=== PATIENT | male | born 1955 | race Caucasian/White ===

== ENCOUNTER 2018-01-10 09:06 | Emergency (ER) | payer OTHER, SELFPAY ==
[2018-01-10 09:09] VITALS: BP 152/76; PULSE 84; RESP 17; TEMP 37.1; O2SAT 99; BMI 25.8
--- NOTE | 2018-01-10 09:20 | ED.DCSUM_ITS ---
- ER Visit Summary Date of Service: 01/10/18 Chief Complaint: Right first toe injury History of Present Illness: The patient is a 62 M who is moving a an 8 foot table when he dropped it on his right foot. He was wearing a shoe at the time. He sustained a laceration at the base of the right first toe. He moved his toe and thought he may have small bone and felt some crunching at that time. His last tetanus is unknown. Denies any other injuries. Physical Examination: Vital signs are reviewed. Right foot exam reveals a 3 cm laceration horizontally oriented at the base of the first toe. He has painful range of motion of the toe. No subungual hematoma. The nailbed is intact. Test Results: Right foot x-ray per my interpretation reveals a distal first toe phalanx fracture Emergency Department Course and Treatment: The patient does have a fracture as well as a laceration. The fracture is distal to the laceration. His laceration was repaired with 9, 4-0 sutures. This was done after a digital block with lidocaine. Patient did have irrigation of this area as well. He was given Wallagrass for pain. At this point he will be given a postop shoe. I will send him home with Wallagrass for pain and Keflex. He will need follow-up with orthopedics Treatment Plan: [] Disposition: Discharge Impression: Right first toe fracture First toe laceration, right, 3 cm Laceration repair by ED physician This note was generated with [employer] dictation software. It may contain incorrect words, spelling, and punctuation that were not noted in review of the chart prior to signing ED Disposition - Plan for ED Patient: Chief Complaint: Laceration Referrals: Maren Membreno DO [Primary Care Provider] -
[2018-01-10] MEDS: HYDROcodone Bitartrate/Apap 5/325 Tablet PO (09:29)
[2018-01-10] MEDS: Diphth,Pertuss(Acell),Tet Vac 0.5 ML Vial IM (09:30)
--- NOTE | 2018-01-10 09:30 | RAD_ITS ---
STUDY: X-RAY - RIGHT FOOT CLINICAL: Male, 62 years old. Right foot trauma with laceration after dropping table on right foot. TECHNIQUE: 3 view(s) of the foot. COMPARISON: None available. FINDINGS: Complete minimally comminuted oblique oriented fractures are noted through the first distal phalanx midportion with minimal distal and inferior displacement with minimal angulation apex inferior identified. Tiny bony fragment is seen medial to the first distal phalanx metaphyseal base approximate 0.3 cm diameter Additionally, complete comminuted transverse oriented acute fractures are noted the second distal phalanx midportion as well. Tiny bony fragments are seen medially and laterally at the base of the second distal phalanx each, approximate 0.4 cm diameter or smaller. Soft tissue swelling/hematoma is associated the fracture sites. Nonacute talus, calcaneus, and tarsal bones. Normal appearing visualized subtalar, talonavicular, calcaneocuboid, tarsal and tarsometatarsal articulations. Nonacute metatarsi. Normal metatarsophalangeal joint of the great toe. Normal tibial and fibular sesamoid bones. Normal interphalangeal joint of the great toe. Normal phalanges of the great toe. Normal second through fifth metatarsophalangeal joints. Normal interphalangeal joints and phalanges of the lesser toes. Moderate posterior and mild plantar calcaneal spurs are seen. Visualized subtalar joints and anterior talus appear intact. RAD/Foot min 3 Views IMPRESSION: Comminuted complete fractures first and second distal phalanges as described. Electronically Signed: Jerry Niño, at 11:20 EDT Tel , Service support ,
--- NOTE | 2018-01-10 10:08 | ED.DEP ---
ED Disposition - Plan for ED Patient: Disposition: Home or Assisted Living Chief Complaint: Laceration Instructions: ED Laceration All Prescriptions: Cephalexin [Keflex] 500 mg PO Q6 #28 cap Hydrocodone/Acetaminophen [[place] 5-325 Tablet] 1 - 2 ea PO 4X/DAY PRN PRN 3 Days #12 tab PRN Reason: Pain Referrals: Maren Membreno DO [Primary Care Provider] -
== END 2018-01-10 10:59 | disposition home or self-care (01) ==
PROVIDERS: Emergency Provider Emergency Medicine; Family Provider Internal Medicine; PCP Internal Medicine
DX: S92.401A Displaced unspecified fracture of right great toe, initial encounter for closed fracture (principal); W20.8XXA Other cause of strike by thrown, projected or falling object, initial encounter; Y93.9 Activity, unspecified; Y92.89 Other specified places as the place of occurrence of the external cause; Y99.9 Unspecified external cause status; S91.111A Laceration without foreign body of right great toe without damage to nail, initial encounter; I10 Essential (primary) hypertension
CPT/HCPCS: 12002; 73630; 90471; 90715; 99284

== ENCOUNTER 2018-01-22 09:53 | Day surgery (SDC) | payer OTHER, SELFPAY ==
[2018-01-22 10:15] VITALS: BP 146/79; PULSE 57; RESP 16; TEMP 36.9; O2SAT 98; BMI 25.1
[2018-01-22 10:34] LABS: Anion Gap 8 (5-15); BUN 28 mg/dL (7-18); Calcium,Total 9.3 mg/dL (8.5-10.1); Chloride 105 mmol/L (98-107); Creatinine, Serum 0.82 mg/dL (0.70-1.30); EST Glomerular Filtration Rate 100 mL/min (>60); Est Glom Filt Rate - Afr Amer 121 mL/min (>60); Estimated Creatinine Clearance 82.13 ml/min; Glucose 94 mg/dL (74-106); Potassium 3.7 mmol/L (3.5-5.1); Sodium Level 143 mmol/L (136-145)
[2018-01-22] MEDS: Cefazolin 2 GM in 0.9% Normal Saline 100 ML IV (12:27)
[2018-01-22] MEDS: Mupirocin Ointment 22gm Tube 1 APPLIC (12:39)
[2018-01-22] MEDS: Bupivacaine 0.5% PF 10 ML VIAL (12:57)
--- NOTE | 2018-01-22 13:08 | PCM.DC.ORTHO ---
Discharge Diet: No Restrictions - keep dressing clean, dry, and intact, follow up in 2 days with cal limat for incision eval and possible antibiotic change, nwb right foot Discharge Activity: May Not Drive May shower in (days): 1 Ice area for (Minutes): 20 - Every hour while awake. Weight Bearing Status: Weight bearing as tolerated Keep extremity elevated above heart level: Operative Extremity Call your doctor if your incision/area has: Continuous Slow Oozing, Sudden Increased Bleeding, Increased Pain/ Swelling, Increased Redness, Foul Smelling Discharge Call your doctor if you observe: Fever of 101 or Higher, Coldness, Increased Pain, Numbness or Tingling, Change in Color, Calf discomfort Allergies/Adverse Reactions: Allergies No Known Allergies Allergy (Verified 01/21/18 14:44) Medications to take at Discharge Aspirin [Aspirin, Baby] 81 mg PO DAILY@0800 01/10/18 Hydrochlorothiazide [Hctz] 25 mg PO DAILY 01/10/18 Lisinopril [Zestril] 5 mg PO DAILY 01/10/18 multivitamin tablet 1 tab PO QAM 01/13/18 cephalexin 500 mg capsule 500 mg PO Q6 #16 cap 01/20/18 Cm Core 1 cap PO DAILY 01/21/18 Cm Core 2 cap PO QHS 01/21/18 Flaxseed Oil 1,000 mg PO BID 01/21/18 Omeprazole [Prilosec] 20 mg PO DAILY 01/21/18 Hydrocodone Bitart/Apap 5-325 [[place] 5MG-325MG] 1 - 2 tablet PO Q6H PRN PRN 5 Days #40 tablet 01/22/18 The following prescriptions were given: Hydrocodone Bitart/Apap 5-325 [[place] 5MG-325MG] 1 - 2 tablet PO Q6H PRN PRN 5 Days #40 tablet PRN Reason: Pain Primary Care Physician: Maren Membreno DO [Primary Care Provider] - Test Results: Test results from this visit will be discussed in further detail at your follow-up appointment, if applicable. Please Follow Up With: Darlin Mayberry DO - [phone]
--- NOTE | 2018-01-22 13:09 | PCM.OPRPT ---
Report of Operation Date of Procedure: 01/22/18 Pre-Operative Diagnosis: right open fracture distal phalanx great toe with cellulitis/ drainage/infection Post-Operative Diagnosis: same Surgery/Procedure Performed:: right great toe nail removal, nailbed debridement, incision/debridement, subcutaneous and bony debridement/ skin removal/ zipper sewing machine operator: Pawel Dey Type of Anesthesia:: General, Local Specimen's removed: toenail, cultures of subcut tissue Estimated Blood Loss (mL): minimal Fluids Replaced: 1200ml lr Description of Procedure: Preoperative note Patient is a 62-year-old male who around 12 days ago had a table drop on his right great toe. Was seen in the emergency room and questionable whether not they irrigated and how much they irrigated and closed him up and was splinted and was seen in the office. Noted that he had increasing redness and continued drainage despite his antibiotics and he had run out of his into antibiotics as we extended his antibiotics for a few more days decision was made at that point to taken to the operating room for a formal irrigation debridement. Risks benefits and alternatives surgery discussed with patient. Risks including but not limited to blood loss, blood clot, infection, neurovascular injury, failure procedure, loss of life and loss of limb. Patient is aware like proceed with right toe irrigation debridement repair is indicated possible nail removal. Operative note Patient seen and examined preoperative holding area. Right great toe was marked. Patient brought to the operating room placed supine on the operating table sign, anesthesia and antibiotics were held until cultures were taken. Timeout was performed. The right leg was then elevated and tourniquet around the site was raised her pressure of 250 torr. We extended the incision was actually over the DIP joint both proximal and distally to an sure adequate flap coverage and evaluation. We extended it distally we also removed first remove the nail. Underneath the nail there was a laceration of the nailbed with the bone actually pinching the nail bed there is a laceration the nail bed. We then used a freer underneath the nailbed to release the bone off of the nailbed this is the most distal aspect of the fracture. We then again irrigated debrided bone tenderness of subcutaneous tissue and there is no tracking into the joint the tendon was intact. We irrigated with copious amounts of sterile saline and closed the incision that we had made. We and substitute dressings were applied we did apply a malleable splint that to keep the toe actually and extension in order to oppose the bone pieces better so that he has better healing. Patient tourniquet was inflated for total working time of 40 minutes. Patient tolerated procedure well there are no comp occasions patient transferred to recovery room in stable condition patient did receive a local block of the right great toe postoperatively as well by myself. Next under standard standard technique. Postoperative note Weight-bear through heel Follow-up in 2 days [place] prescription at Hospital pharmacy Call with increased pain numbness tingling further issues arise Continue p.o. antibiotics as prescribed This note was generated with [employer] dictation software. It may contain incorrect words, spelling, and punctuation that were not noted in checking the note before signing.
[2018-01-22 13:21] VITALS: BP 105/67; BP 146/79; PULSE 76; RESP 14; TEMP 36.4; O2SAT 100
[2018-01-22 13:30] VITALS: BP 100/63; BP 146/79; PULSE 69; RESP 16; O2SAT 99
[2018-01-22 13:45] VITALS: BP 112/65; BP 146/79; PULSE 68; RESP 16; O2SAT 95
[2018-01-22 14:01] VITALS: BP 110/59; BP 146/79; PULSE 66; RESP 16; TEMP 37; O2SAT 95
[2018-01-22 15:08] VITALS: BP 146/79
== END 2018-01-22 14:00 | disposition home or self-care (01) ==
LOC: SDC 09:55 → AC 09:57
PROVIDERS: Family Provider Internal Medicine; PCP Internal Medicine; Visit Provider Orthopaedic Surgery
DX: S91.111D Laceration without foreign body of right great toe without damage to nail, subsequent encounter (principal); L03.031 Cellulitis of right toe; S92.421G Displaced fracture of distal phalanx of right great toe, subsequent encounter for fracture with delayed healing; W20.8XXD Other cause of strike by thrown, projected or falling object, subsequent encounter; K21.9 Gastro-esophageal reflux disease without esophagitis; I10 Essential (primary) hypertension; Z85.46 Personal history of malignant neoplasm of prostate; Z87.891 Personal history of nicotine dependence
CPT/HCPCS: 11720; 11750; 36415; 80048; 87070; 87075; 87077; 87102; 87186; 87205; 87206; 93005; J7120; J2405

== ENCOUNTER 2018-02-12 12:41 | Emergency (ER) | payer OTHER, BC, SELFPAY ==
[2018-02-12 12:42] VITALS: BP 149/90; PULSE 85; RESP 16; TEMP 36.9; O2SAT 97; BMI 25.4
--- NOTE | 2018-02-12 13:03 | RAD_ITS ---
STUDY: X-RAY RIGHT FOOT, FIRST AND SECOND TOES REASON FOR EXAM: Recent surgery, redness and swelling of toe. TECHNIQUE: 3 view(s) of the toe were obtained. COMPARISON: Radiographs 01/10/2018. FINDINGS: Normal visualized metatarsals. Normal metatarsophalangeal joints. Normal interphalangeal joints. There is a comminuted fracture of the first distal phalanx with dorsal displacement of the major distal fragments by 0.5 cm and a small fracture at the lateral distal phalangeal base without bridging ossification. There is also a nondisplaced fracture of the second distal phalanx without significant interval change. There is soft tissue swelling of the first and second toes. RAD/Toe(s) Min 2 Views IMPRESSION: Fracture of the first distal phalanx with interval development of dorsal displacement. Nondisplaced fracture of the second distal phalanx. Electronically Signed: Sanket Ludwig MD at 14:35 EDT Tel , Service support ,
[2018-02-12 13:28] LABS: Absolute Lymphocyte Count 2.02 X10^3/ul (0.83-4.51); Absolute Neutrophil Count 6.6 X10^3/uL (2.0-7.7); Basophil# 0.06 X10^3/uL; Basophil% 0.6 % (0-1); Eosinophil# 0.04 X10^3/uL; Eosinophils% 0.4 % (0-5); Hematocrit 41.5 % (40-54); Hemoglobin 14.2 g/dl (13.0-16.5); Lymphocyte # 2.02 X10^3/ul (4.0); Lymphocyte % 21.3 % (19-41); Mean Corp Hgb Conc 34.2 g/gl (32-36); Mean Corpuscular Hgb 28.3 pg (27.0-32.0); Mean Corpuscular Volume 82.7 fL (80-94); Mean Platelet Vol. 9.9 fl (6.2-12.0); Monocyte# 0.79 X10^3/uL; Monocyte% 8.3 % (0-10); Neutrophil # 6.56 X10^3/uL (2.7-7.7); Neutrophil % 69.4 % (47-70); Platelet Count 283 K/mm3 (150-450); RBC Distribution Width CV 13.1 % (11.6-14.6); RBC Distribution Width SD 39.7 fl (35.1-43.9); Red Blood Count 5.02 M/mm3 (4.6-6.2); White Blood Count 9.5 K/mm3 (4.4-11.0)
[2018-02-12 13:29] LABS: POSITIVE COUNT NO; POSITIVE DIFFERENTIAL NO; POSITIVE MORPHOLOGY NO
[2018-02-12] MEDS: Vancomycin IV 1,000 MG/200 ML BAG 200 MG IV (13:31)
[2018-02-12 13:39] LABS: Anion Gap 9 (5-15); BUN 19 mg/dL (7-18); BUN/Creat Ratio 20.2 RATIO (10-20); Calcium,Total 8.9 mg/dL (8.5-10.1); Chloride 103 mmol/L (98-107); Creatinine, Serum 0.94 mg/dL (0.70-1.30); EST Glomerular Filtration Rate 86 mL/min (>60); Est Glom Filt Rate - Afr Amer 104 mL/min (>60); Estimated Creatinine Clearance 71.64 ml/min; Glucose 87 mg/dL (74-106); Potassium 3.7 mmol/L (3.5-5.1); Sodium Level 140 mmol/L (136-145)
--- NOTE | 2018-02-12 13:43 | ED.VISSUMM ---
- ER Visit Summary Date of Service: 02/12/18 Chief Complaint: Infection right first toe History of Present Illness: The patient is a [address] Membreno and Dr. Mayberry. He reports that January 10 he dropped a table on his right first toe. He got sutures. The healing process was complicated by infection. On January 22 he had an I&D by Dr. Mayberry. He reports that he was on 2 antibiotics the names of which he does not know which she finished February 02. He reports the toe is doing well until yesterday when it began turning red again. Reports that he is an aching pain that is 6 out of 10 with walking and is pain-free after ibuprofen. He reports he has paresthesias in this toe that are chronic and unchanged. He denies any constitutional symptoms. No fever, chills, nausea, or vomiting. Physical Examination: Vitals: Stable. Afebrile. General: Well-nourished and well-developed. Head: Normocephalic atraumatic. Neck: Supple, no lymphadenopathy. No JVD. Nontender. Cardiovascular: Regular rate and rhythm. No murmurs. Respiratory: No respiratory distress. Clear to auscultation bilaterally. Abdominal: Soft, nontender, nondistended, normal bowel sounds. No guarding, rebound, or peritoneal signs. Back: Nontender. Extremities: Right great toe has a scab over the MTP joint on the dorsum. The toe is erythematous. There is no appreciable induration. No fluctuance. There is a small drainage is expressed on the lateral side. Skin: Normal color, no rash. Neurologic: Alert and oriented ?3. Cranial nerves II through XII are intact. Normal strength and sensation. Psych: Normal affect. Test Results: CBC is normal. Chem-7 is marked for BUN of 19. Lactic acid is 1.9. Clinical Impression(s) from Imaging Studies Toe X-Ray 02/12/18 13:03 IMPRESSION: Fracture of the first distal phalanx with interval development of dorsal displacement. Nondisplaced fracture of the second distal phalanx. Electronically Signed: Sanket Ludwig MD at 14:35 EDT Tel , Service support , Emergency Department Course and Treatment: Patient's cultures were reviewed. He had an IV placed and was given dose of vancomycin IV. Aerobic and anaerobic cultures were sent. Treatment Plan: Patient was discussed with Dr. Mayberry. We reviewed his prior cultures. It was sensitive to Levaquin. Patient will be discharged on Levaquin instructed follow-up Dr. Mayberry in 1-2 days for repeat exam. She is also going to refer him to infectious disease. Patient is happy with this plan. Return to the emergency department for any worsening symptoms. Disposition: To home in improved and stable condition. Impression: 1. Cellulitis right great toe. 2. 21 days status post right great toe incision and drainage. This note was generated with [employer] dictation software. It may contain incorrect words, spelling, and punctuation that were not noted in review of the chart prior to signing ED Disposition - Plan for ED Patient: Chief Complaint: Wound Check Instructions: ED Wound Check Laceration FU Infec Prescriptions: Levofloxacin [Levaquin] 750 mg PO DAILY #7 tablet Referrals: Darlin Mayberry DO [STAFF PHYSICIAN] - 2 Days for wound check
[2018-02-12 13:54] LABS: Lactic Acid 1.9 mmol/L (0.4-2.0)
[2018-02-12] MEDS: levoFLOXacin 750 MG Tablet PO (15:29)
[2018-02-12 15:40] VITALS: BP 150/95; PULSE 61; RESP 16; O2SAT 96
== END 2018-02-12 15:41 | disposition home or self-care (01) ==
LOC: ED 13:16
PROVIDERS: Emergency Provider Emergency Medicine; Family Provider Internal Medicine; PCP Internal Medicine
DX: L03.031 Cellulitis of right toe (principal); I10 Essential (primary) hypertension; S92.421 Displaced fracture of distal phalanx of right great toe; X58.XXXD Exposure to other specified factors, subsequent encounter
CPT/HCPCS: 73660; 80048; 83605; 85025; 87070; 87075; 87077; 87186; 87205; 99284; J7050; A4216

== ENCOUNTER → 2018-02-13 10:27 | Outpatient (CLI) | payer OTHER, SELFPAY ==
--- NOTE | 2018-02-13 10:30 | RAD_ITS ---
STUDY: X-RAY RIGHT FOOT, FIRST AND SECOND TOES REASON FOR EXAM: Pain and infection. TECHNIQUE: 3 view(s) of the toe were obtained. COMPARISON: Radiographs 02/12/2018 and 01/10/2018. FINDINGS: Normal visualized metatarsals. Normal metatarsophalangeal joints. Normal interphalangeal joints. There is a comminuted fracture of the first distal phalanx with dorsal displacement of the major fragments at the major fracture site, possibly representing superimposed osteomyelitis. There is a nondisplaced fracture of the second distal phalanx. There is soft tissue swelling of the first and second toes. RAD/Toe(s) Min 2 Views IMPRESSION: Fracture of the first distal phalanx with resorption at the fracture site, possibly representing superimposed osteomyelitis. Nondisplaced fracture of the second distal phalanx. Electronically Signed: Sanket Ludwig MD at 7:38 EDT Tel , Service support ,
== END ==
PROVIDERS: Family Provider Internal Medicine; PCP Internal Medicine; Visit Provider Orthopaedic Surgery
DX: S92.401A Displaced unspecified fracture of right great toe, initial encounter for closed fracture (principal)
CPT/HCPCS: 73660

== ENCOUNTER 2018-02-17 13:00 | Outpatient (RCR) | payer OTHER, BC, SELFPAY ==
--- NOTE | 2018-02-17 15:52 | HP.OTEVAL_ITS ---
Patient's Visit Information QUENTIN RUDD is a 62 year old M, referred to Occupational Therapy by Darlin Mayberry DO, with a diagnosis of wound. Date of Evaluation: 02/14/18 Occupational Therapist: MICHAEL Alston/Dalton, CHT - Subjective Subjective: pt arrives to OT eval on crutches- states he dropped a table on his toe and broke it- states he did develop infection and was given IV antibiotics and is currently on antibiotics. is concerned about the wound and the pt. not able to get into the wound center until next wed. - Lower Limb Functional Index Lower Extremity Functional Score: 10 - Goals Goal:: pt and famiy ed. on wound care and cleaning and will demo understanding of home care. - Rehabilitation General Assessment: pt and family demo need for wound care - pt demo with large wound on top dorsal side of of right toe- eschar tissue/ yellowing sloughy tissue covering parts of the wound-and white coloration at toe tip- redness prox toe. swelling. - therapist ed. pt and on wound soak using 50/50 H20 and hydrogen peroxide, dreft warm water soaks and to work with surgical brush to remove yellow tissue 2x a day. and dress with gauze. pt and demo understanding. Rehabilitation Potential: Good - Anticipated Interventions Anticipated Interventions: Caregiver Training, Home Program Other Interventions: wound care - Visit Plan Frequency: 3x /Week Duration: 2 Weeks TEXT: Thank you for the opportunity to evaluate your patient. For Medicare and Medicare HMO plans, please review the plan of care and approve it. It will need to be FAXED BACK to us at [phone] for Medicare purposes. Please let me know if there are questions or concerns regarding this plan of care. Physician Signature: Date:
--- NOTE | 2018-04-01 08:00 | HP.OTDCSUM ---
HP - OT D/C Summary It has been my pleasure to treat QUENTIN RUDD under orders from Darlin Mayberry DO, for the diagnosis of wound for a total of 2 visit(s). Please see the following information for a summary of their discharge status. - Objective Objective/Function: pt demo with large wound on top dorsal side of of right toe- eschar tissue/ yellowing sloughy tissue covering parts of the wound-and white coloration at toe tip- redness prox toe. swelling. - Goals Other: wound care until pt can be seen at wound center Goal:: pt and famiy ed. on wound care and cleaning and will demo understanding of home care. - D/C Information If there are questions or concerns regarding this patient's occupational therapy, please fell free to call me at [phone]. Thank you for the referral of this patient. Sincerely, Nichelle Thompson, OTR/L, CHT
== END 2018-02-17 19:00 | disposition home or self-care (01) ==
LOC: OT 13:00
PROVIDERS: Family Provider Internal Medicine; PCP Internal Medicine; Visit Provider Orthopaedic Surgery
DX: S92.401D Displaced unspecified fracture of right great toe, subsequent encounter for fracture with routine healing (principal); Z48.817 Encounter for surgical aftercare following surgery on the skin and subcutaneous tissue
CPT/HCPCS: 97165; 97530

== ENCOUNTER 2018-02-26 15:00 | Outpatient (RCR) | payer OTHER, SELFPAY ==
[2018-02-19 13:35] VITALS: BP 144/87; PULSE 87; RESP 18; TEMP 36.8; BMI 25.3
--- NOTE | 2018-02-19 15:21 | PCM.WC.HP ---
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 Code(s): L97.513 - Non-pressure chronic ulcer of other part of right foot with necrosis of muscle (4) Peripheral vascular disease Status: Suspected Code(s): I73.9 - Peripheral vascular disease, unspecified (5) Malnutrition Status: Suspected Code(s): E46 - Unspecified protein-calorie malnutrition (6) Delayed wound healing Status: Chronic Code(s): T14.8XXD - Other injury of unspecified body region, subsequent encounter (7) Displaced fracture of distal phalanx of right great toe with delayed healing Status: Acute Code(s): S92.421G - Displaced fracture of distal phalanx of right great toe, subsequent encounter for fracture with delayed healing (8) Closed displaced fracture of distal phalanx of lesser toe of right foot Status: Acute Qualifiers: Encounter type: subsequent encounter Fracture healing: with delayed healing Qualified Code(s): S92.531G - Displaced fracture of distal phalanx of right lesser toe(s), subsequent encounter for fracture with delayed healing Code(s): S92.531A - Displaced fracture of distal phalanx of right lesser toe(s), initial encounter for closed fracture History of Present Illness Date of Service: 02/22/18 Chief Complaint: Right toe ulcer History of Wound: This 62-year-old male was seen today for nonhealing right great toe ulcer. He did have an initial traumatic accident on January 10, 2018 when he dropped a table on his toe at work. He was seen in the emergency room and subsequently was diagnosed with a distal phalanx comminuted fracture and laceration. He went for surgical debridement and irrigation on January 22, 2018 with orthopedic physician, Dr. Mayberry. He had continued devitalization of the skin and there was a concern of infection; he was placed on a seven-day course of levofloxacin. She was referred to the wound healing center due to recent exposure deeper tissue and nonhealing status. He denies worsening redness or swelling. He denies fever, chill, nausea, vomiting. He does have some pain that is aggravated with direct touch. This is a Workmen's Compensation case. 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 Medications: Aspirin, lisinopril, hydrochlorothiazide, omeprazole, levofloxacin. Allergies: No known drug allergies Surgical History: appendectomy, rotator cuff repair, - - hand surgery Allergies/Adverse Reactions: Allergies No Known Allergies Allergy (Verified 02/19/18 13:44) Home Medications: Ambulatory Orders Medication Instructions Recorded Lisinopril [Zestril] 5 mg PO DAILY 01/10/18 multivitamin tablet 1 tab PO QAM 01/13/18 Cm Core 1 cap PO DAILY 01/21/18 Cm Core 2 cap PO QHS 01/21/18 Flaxseed Oil 1,000 mg PO BID 01/21/18 Aspirin E.C. [Ecotrin] 81 mg PO DAILY 02/12/18 Hydrochlorothiazide [Hctz] 25 mg PO DAILY 02/12/18 Levofloxacin [Levaquin] 750 mg PO DAILY #7 tablet 02/12/18 Omeprazole Magnesium [Prilosec Otc] 20 mg PO DAILY 02/12/18 Lives: Spouse/ Significant Other Smoking Status: Former smoker Tobacco Use: Non-smoker Drugs: None Review of Systems Constitutional: Denies: Chills, Fever, Weakness Cardiovascular: Denies: Chest Pain, Claudication, Edema Respiratory: Denies: Shortness of Breath Gastrointestinal: Denies: Nausea, Vomiting Musculoskeletal: Reports: Foot Pain. Denies: Joint Tenderness, Leg Pain Skin: Reports: Skin Changes, Wounds. Denies: Pruritis Neurological: Denies: Tingling Psychiatric: Denies: Anxiety - Physical Exam Vital Signs Temp Pulse Resp BP 98.2 F 87 18 144/87 H 02/19/18 13:35 02/19/18 13:35 02/19/18 13:35 02/19/18 13:35 General: Alert, Oriented x3, Cooperative HEENT: Atraumatic Extremities: No cyanosis, Capillary Refill Less than 3 Seconds, No Calf Tenderness - Negative Genaro and Dorsey sign bilateral, Diminished Peripheral Pulses, Edema - Right great toe and foot, Tenderness - Pain with ulcer manipulation of right great toe and with fracture site compression. No pain with adjacent first metatarsophalangeal joint or sesamoid apparatus palpation or passive range of motion. The compartments of the right foot remain soft. 4- out of 5 resisted range of motion strength right hallux and foot, - - Pain to palpate hallux and second toe fracture sites Skin: Ulcer/ Wound - No purulence, josh eschar necrosis, odor noted to the right foot. The peripheral skin is atrophic. There is some subtle edema and diffuse erythema. There is exposed deep tendon tissue including the extensor hallucis longus. There is no nailbed noted. The remainder of the ulcer wound bed is granular and fibrous. There is no visualized or probe to the joint. Wound Measurements and Assessment WC - Nurse 1 - General Ulcer Measurement Start: 02/19/18 13:22 Freq: Status: Active Protocol: Activity Type Activity Date Activity User E-Sign Co-Sign Detail Recorded Client Recorded Date Recorded By Document 02/19/18 13:35 [facility] [id number] 02/19/18 13:42 [email or web address] 02/19/18 13:35 Wound Center Nurse 1 [Ulcer Assessment] #1- RT GR TOE -Combined with other wound No -Current Size (cm) - Length 1.6 -Current Size (cm) - Width 3.7 -Current Size (cm) - Depth 0.4 -Total Square Cm 5.92 -Date of Last Picture (Recall this 02/19/18 field) -Photo Taken Yes -Epithelialization None Present -Tunneling No -Undermining/Tunneling No -Circular Undermining No -Exudate Amt Small (1-33%) -Exudate Type Serosanguineous -Wound Margin Thickened & Rolled Under -Granulation Amt Large (67-100%) -Granulation Quality Red -Slough/Fibrin Yes -Necrosis Amt Small (1-33%) -Necrotic Tissue Type Adherent Slough -Structure Exposed Tendon -Texture (Yulia-wound Skin Appearance) Scarring -Moisture (Yulia-wound Skin Appearance Assessed ) -Color (Yulia-wound Skin Appearance) Erythema -Temperature (Yulia-wound Skin No Abnormality Appearance) (Pt Warm) -Tenderness on Palpation (Yulia-wound Yes Skin Appearance) -Ulcer Cleansing Rinsed/ Irrigated with Saline -Foul Odor after Cleansing No -Anesthetic Used 4% Lidocaine Solution [Edema Assessment] -Lower Limb Edema Present Yes -Right Calf (cm) 33 -Right Ankle (cm) 20 -Left Calf (cm) 30.5 -Left Ankle (cm) 19.5 WC - Nurse 2 - General Ulcer CM Notes Start: 02/19/18 13:22 Freq: Status: Active Protocol: Activity Type Activity Date Activity User E-Sign Co-Sign Detail Recorded Client Recorded Date Recorded By Document 02/19/18 14:10 [id number] 02/19/18 14:21 02/19/18 14:10 Wound Center Nurse 2 [Procedure/Treatment] #1- RT GR TOE -Time 14:18 -Correct Patient Yes -Correct Side, Site, Position Yes -Correct Procedure Yes -Procedure Performed Yes -Type of Procedure Debridement -Clinical Debridement Subcutaneous -Post Debridement Size (cm) - Length 1.6 -Post Debridement Size (cm) - Width 3.8 -Post Debridement Size (cm) - Depth 0.4 -Total Square Cm 6.08 -Wound/Ulcer Outcome Not Healed -Ulcer Cleansing Rinsed/ Irrigated with Saline -Foul Odor after Cleansing No -Bioengineered Tissue No -Bleeding Controlled with Pressure -Treatment Response Procedure Tolerated Well [See Physician Procedure note for Specifics] Musculoskeletal: No Tenderness to Palpation of Joints or Extremities, Muscle Wasting Neurological: Sensory exam intact to light touch and pain Psych/Mental Status: Normal Affect, Appropriate Debridement Note Post-Debridement Measurements/Treatment - Nurse 2 - General Ulcer CM Notes Start: 02/19/18 13:22 Freq: Status: Active Protocol: Activity Type Activity Date Activity User E-Sign Co-Sign Detail Recorded Client Recorded Date Recorded By Document 02/19/18 14:10 [email or web address] [id number] 02/19/18 14:21 02/19/18 14:10 Wound Center Nurse 2 #1- RT GR TOE -Time 14:18 -Correct Patient Yes -Correct Side, Site, Position Yes -Correct Procedure Yes -Procedure Performed Yes -Type of Procedure Debridement -Clinical Debridement Subcutaneous -Post Debridement Size (cm) - Length 1.6 -Post Debridement Size (cm) - Width 3.8 -Post Debridement Size (cm) - Depth 0.4 -Total Square Cm 6.08 -Wound/Ulcer Outcome Not Healed -Ulcer Cleansing Rinsed/ Irrigated with Saline -Foul Odor after Cleansing No -Bioengineered Tissue No -Bleeding Controlled with Pressure -Treatment Response Procedure Tolerated Well Wound debrided: dorsal hallux Laterality: Right Type of Debridement: Excisional debridement Anesthesia Used: 4% Lidocaine Solution Depth: in the subcutaneous layer Percentage of wound debrided: 100 Instrument Used: #15 blade Tissue Removed: fibrous, devitalized subcutaneous, biofilm, slough Severity: Fat Layer Exposed Amount of bleeding with debridement: Mild Bleeding Controlled with: Pressure Patient tolerated procedure well Assessment/Plan Assessment: Cellulitis right hallux resolving. Right great toe ulcer with muscle layer exposed. History of traumatic laceration. Comminuted distal phalanx fracture with delayed healing. Delayed healing. Malnutrition suspected. Peripheral vascular disease suspected and workup is in process Plan: I reviewed and discussed his case. I reviewed his chart including his previous intervention and Worker's Compensation paperwork. Subcutaneous excisional debridement was performed as noted in the clinical nursing panel. I recommend application of Adaptic and hydrogel to keep this wound bed moist. It is located lightly cleansed with soap and water. He was advised to avoid soaking activity. Due to the chronicity of this nonhealing ulcer site and his delayed healing status I recommend application of advanced wound care product, epi cord. The indications, anticipated application, and expected healing management and time were discussed in detail. He understands and is amenable to proceed with the prior authorization. Application will be considered once this is approved. I am also concerned about the dysvascular status of his toe even though he has palpable pulses. A noninvasive vascular study was ordered and to see 9 will be submitted. His foot x-ray was reviewed with a comminuted distal phalanx displaced fracture with continued gapping evidence of nonhealing. Overall the hallux remains in a rectus position and there is no soft tissue emphysema, foreign body, or obvious periosteal reaction or destruction. There is also a nondisplaced fracture of the adjacent second toe that does not appear to be healed. Serial x-rays will be obtained throughout his treatment process evaluate for any change. His recent laboratory work from February 12, 2018 was reviewed with a white blood cell count of 9.5 and sedimentation rate of 14. His most recent culture was also reviewed with pseudomonas aeruginosa. It appears this is clinically improved with Levaquin use. Additional antibiotics will be considered if his status worsens. Recommend continued fracture splinting with his toe splint as well as cam walker boot. His cam walker boot will provide better protection and a referral was provided. To keep weight off the fracture site in place weight on the heel. To elevate for additional protection and pain management. I appreciate the consultation. I answered all the patient's questions. He was advised to follow-up at the wound healing center in 1 week or call sooner if she has any questions or concerns. Wound healing etiology and treatment expectations were discussed in detail today. His approved workman compensation CPT codes are reviewed and additional C9 will be initiated for additional diagnoses as well as interventions.
[2018-02-26 14:56] VITALS: BP 128/79; PULSE 78; RESP 16; TEMP 37.2; BMI 25.3
--- NOTE | 2018-02-26 17:40 | PN.PCM_ITS ---
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 Current Visit: Yes Code(s): L97.513 - Non-pressure chronic ulcer of other part of right foot with necrosis of muscle (2) Laceration of great toe of right foot Status: Chronic Current Visit: Yes Qualifiers: Encounter type: subsequent encounter Damage to nail status: with damage Foreign body presence: without foreign body Qualified Code(s): S91.211D - Laceration without foreign body of right great toe with damage to nail, subsequent encounter Code(s): S91.111A - Laceration without foreign body of right great toe without damage to nail, initial encounter (3) Cellulitis of toe of right foot Status: Resolved Current Visit: Yes Code(s): L03.031 - Cellulitis of right toe (4) Peripheral vascular disease Status: Resolved Current Visit: No Code(s): I73.9 - Peripheral vascular disease, unspecified (5) Malnutrition Status: Suspected Current Visit: Yes Code(s): E46 - Unspecified protein- calorie malnutrition (6) Delayed wound healing Status: Chronic Current Visit: Yes Code(s): T14.8XXD - Other injury of unspecified body region, subsequent encounter (7) Displaced fracture of distal phalanx of right great toe with delayed healing Status: Chronic Current Visit: Yes Code(s): S92.421G - Displaced fracture of distal phalanx of right great toe, subsequent encounter for fracture with delayed healing (8) Closed displaced fracture of distal phalanx of lesser toe of right foot Status: Chronic Current Visit: Yes Qualifiers: Encounter type: subsequent encounter Fracture healing: with delayed healing Qualified Code(s): S92.531G - Displaced fracture of distal phalanx of right lesser toe(s), subsequent encounter for fracture with delayed healing Code(s): S92.531A - Displaced fracture of distal phalanx of right lesser toe(s), initial encounter for closed fracture Type of Wound Date of Service: 02/26/18 Chief Complaint: Right toe ulcer History of Wound: This 62-year-old male was seen today for nonhealing right great toe ulcer. He has a hallux fracture. He has completed a course of antibiotics. He denies fever, chill, nausea, vomiting. He does have some pain that is aggravated with direct touch. This is a Workmen's Compensation case. Progress of Wound: Stable - Physical Exam Vital Signs Temp Pulse Resp BP 98.9 F 78 16 128/79 H 02/26/18 14:56 02/26/18 14:56 02/26/18 14:56 02/26/18 14:56 General: Alert, Oriented x3, Cooperative Extremities: No cyanosis, Capillary Refill Less than 3 Seconds - All digits of right foot, No Calf Tenderness - Negative Genaro and Dorsey sign bilateral, Edema - Mild to hallux, Peripheral Pulses Normal Skin: Ulcer/ Wound - No purulence, no erythema, streaking, odor, no infection. There is exposed tendon to the dorsal aspect of the hallux and this is a near proximity to the bone and joint. There is no visualized bone. The wound bed has increased granulation tissue and interspersed fibrous tissue. There is no eschar. There is no interdigital maceration., - - He has hair noted to the foot and leg skin Wound Measurements and Assessment WC - Nurse 1 - General Ulcer Measurement Start: 02/19/18 13:22 Freq: Status: Active Protocol: Activity Type Activity Date Activity User E-Sign Co-Sign Detail Recorded Client Recorded Date Recorded By Document 02/26/18 14:56 [facility] [id number] 02/26/18 15:04 [facility] 02/26/18 14:56 Wound Center Nurse 1 [Ulcer Assessment] #1- RT GR TOE -Combined with other wound No -Current Size (cm) - Length 2.6 -Current Size (cm) - Width 3.9 -Current Size (cm) - Depth 0.3 -Total Square Cm 10.14 -Photo Taken No -Epithelialization Small 1-33% -Tunneling No -Undermining/Tunneling No -Circular Undermining No -Exudate Amt Medium (34-66%) -Exudate Type Serosanguineous -Wound Margin Distinct, Outline Attached -Granulation Amt Medium (34-66%) -Granulation Quality Red -Slough/Fibrin Yes -Necrosis Amt Small (1-33%) -Necrotic Tissue Type Adherent Slough -Structure Exposed Tendon -Texture (Yulia-wound Skin Appearance) Scarring -Moisture (Yulia-wound Skin Appearance Dry/Scaly ) -Color (Yulia-wound Skin Appearance) Erythema -Temperature (Yulia-wound Skin No Abnormality Appearance) (Pt Warm) -Tenderness on Palpation (Yulia-wound No Skin Appearance) -Ulcer Cleansing Rinsed/ Irrigated with Saline -Foul Odor after Cleansing No -Anesthetic Used 5% Lidocaine Gel - Nurse 2 - General Ulcer CM Notes Start: 02/19/18 13:22 Freq: Status: Active Protocol: Activity Type Activity Date Activity User E-Sign Co-Sign Detail Recorded Client Recorded Date Recorded By Document 02/26/18 15:38 [id number] 02/26/18 15:39 02/26/18 15:38 Wound Center Nurse 2 [Procedure/Treatment] -Time 15:39 -Correct Patient Yes -Correct Side, Site, Position Yes -Correct Procedure Yes -Procedure Performed Yes -Type of Procedure Debridement -Clinical Debridement Subcutaneous -Post Debridement Size (cm) - Length 2.7 -Post Debridement Size (cm) - Width 4 -Post Debridement Size (cm) - Depth 0.3 -Total Square Cm 10.8 -Wound/Ulcer Outcome Not Healed -Ulcer Cleansing Rinsed/ Irrigated with Saline -Foul Odor after Cleansing No -Bioengineered Tissue No -Bleeding Controlled with Pressure -Treatment Response Procedure Tolerated Well [See Physician Procedure note for Specifics] Pain Scale: 0-10 Numeric [Pain] -Is Patient Pain Free? Yes Musculoskeletal: No Muscle Wasting, Tenderness - Mild pain on palpation to the nail bed area and compression fracture site. No pain with passive motion of the hallux interphalangeal joint of the first metatarsal phalangeal joint Neurological: - - Lack of full epicritic sensation to the injured toe via sharp debridement Psych/Mental Status: Normal Affect, Appropriate Debridement Note Post-Debridement Measurements/Treatment - Nurse 2 - General Ulcer CM Notes Start: 02/19/18 13:22 Freq: Status: Active Protocol: Activity Type Activity Date Activity User E-Sign Co-Sign Detail Recorded Client Recorded Date Recorded By Document 02/19/18 14:10 [id number] 02/19/18 14:21 Document 02/26/18 15:38 [id number] 02/26/18 15:39 02/19/18 02/26/18 14:10 15:38 Wound Center Nurse 2 #1- RT GR TOE -Time 14:18 15:39 -Correct Patient Yes Yes -Correct Side, Site, Position Yes Yes -Correct Procedure Yes Yes -Procedure Performed Yes Yes -Type of Procedure Debridement Debridement -Clinical Debridement Subcutaneous Subcutaneous -Post Debridement Size (cm) - Length 1.6 2.7 -Post Debridement Size (cm) - Width 3.8 4 -Post Debridement Size (cm) - Depth 0.4 0.3 -Total Square Cm 6.08 10.8 -Wound/Ulcer Outcome Not Healed Not Healed -Ulcer Cleansing Rinsed/ Rinsed/ Irrigated with Irrigated with Saline Saline -Foul Odor after Cleansing No No -Bioengineered Tissue No No -Bleeding Controlled with Pressure Pressure -Treatment Response Procedure Procedure Tolerated Well Tolerated Well Pain Scale: 0-10 Numeric Is Patient Pain Free? 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 Right great toe ulcer with muscle layer exposed. History of traumatic laceration. Comminuted distal phalanx fracture with delayed healing. Delayed healing. Malnutrition suspected. Peripheral vascular disease has been ruled out Plan: I reviewed and discussed his case. I reviewed his chart including his previous intervention and Worker's Compensation paperwork. Subcutaneous excisional debridement was performed as noted in the clinical nursing panel. I recommend application of Adaptic and hydrogel to keep this wound bed moist. It is located lightly cleansed with soap and water. He was advised to avoid soaking activity. Due to the chronicity of this nonhealing ulcer site and his delayed healing status I recommended application of advanced wound care product, epi cord. The indications, anticipated application, and expected healing management and time were discussed in detail. He understands and is amenable to proceed with the prior authorization. Application will be considered once this is approved and the C9 is processed. I am also concerned about the dysvascular status of his toe even though he has palpable pulses. A noninvasive vascular study was ordered and this is reviewed. He appears to have normal ankle- brachial indices and appropriate waveforms suggesting healing is possible to the foot. His foot x-ray was reviewed with a comminuted distal phalanx displaced fracture with continued gapping evidence of nonhealing. Overall the hallux remains in a rectus position and there is no soft tissue emphysema, foreign body, or obvious periosteal reaction or destruction. There is also a nondisplaced fracture of the adjacent second toe that does not appear to be healed. Serial x-rays will be obtained throughout his treatment process evaluate for any change. His recent laboratory work from February 12, 2018 was reviewed with a white blood cell count of 9.5 and sedimentation rate of 14. His most recent culture was also reviewed with pseudomonas aeruginosa. It appears this is clinically improved with Levaquin use. Additional antibiotics will be considered if his status worsens. Recommend continued fracture splinting with his toe splint as well as cam walker boot. His cam walker boot will provide better protection and a referral was provided. To keep weight off the fracture site in place weight on the heel. To elevate for additional protection and pain management. To follow-up with orthopedic physician, Dr. Mayberry, as advised. He was advised to follow-up at the wound healing center in 1 week or call sooner if he has any questions or concerns.
--- NOTE | 2018-03-01 16:23 | LEAS_ITS ---
Arterial Study - Arterial Study Arterial Study: This is a 62-year-old male with an open ulceration on his great toe. Suspecting the presence of atherosclerotic peripheral arterial occlusive disease, the patient was brought to the noninvasive vascular laboratory at this time for the purpose of bilateral noninvasive lower extremity arterial assessment. Doppler signal assessment was used to evaluate the pulses at ankle level bilaterally. The posterior tibial and dorsalis pedis pulses were triphasic bilaterally. Segmental limb pressures were obtained bilaterally. The right ankle pressure, as determined by posterior tibial pulse, was measured at 157 mmHg. The right ankle pressure, as determined by dorsalis pedis pulse, was measured at 152 mmHg. The right digital pressure was measured at 101 mmHg. The left ankle pressure, as determined by posterior tibial pulse, was measured at 162 mmHg. The left ankle pressure, as determined by dorsalis pedis pulse, was measured at 150 mmHg. The left digital pressure was measured at 143 mmHg. Pulse?volume recordings were obtained bilaterally and segmentally. Waveform amplitudes appeared to be satisfactory at low thigh, calf, and ankle levels bilaterally. Digital waveform amplitudes were diminished. Resting ankle?brachial indices were calculated bilaterally. The resting right ankle?brachial index was calculated to be 1.19. The resting left ankle?brachial index was calculated to be 1.23. Digital?brachial indices were calculated bilaterally. The right digital- brachial index was calculated to be 0.77. The left digital-brachial index was calculated to be 1.08. Impression: Based upon the findings of this resting noninvasive lower extremity arterial study, there is no evidence of significant atherosclerotic peripheral arterial occlusive disease in the lower extremities bilaterally. Triphasic waveforms were noted at ankle level bilaterally. Resting ankle?brachial indices were bilaterally normal. Digital-brachial indices were also normal bilaterally. In summary, this represents a normal resting noninvasive lower extremity arterial study bilaterally.
== END 2018-03-02 23:59 ==
LOC: WC 15:00
PROVIDERS: Family Provider Internal Medicine; PCP Internal Medicine; Referring Provider Podiatrist; Visit Provider Podiatrist
DX: S92.531G Displaced fracture of distal phalanx of right lesser toe(s), subsequent encounter for fracture with delayed healing (principal); W22.8XXD Striking against or struck by other objects, subsequent encounter; I73.9 Peripheral vascular disease, unspecified; L97.513 Non-pressure chronic ulcer of other part of right foot with necrosis of muscle; L03.031 Cellulitis of right toe; I10 Essential (primary) hypertension; Z79.899 Other long term (current) drug therapy; Z79.82 Long term (current) use of aspirin; Z87.891 Personal history of nicotine dependence
CPT/HCPCS: 11042; 93923; 99213; G0463

== ENCOUNTER 2018-04-02 15:45 | Outpatient (RCR) | payer OTHER, SELFPAY ==
[2018-03-03 01:38] VITALS: BP 128/79; PULSE 78; RESP 16; TEMP 37.2
[2018-03-05 15:40] VITALS: BP 136/85; PULSE 79; RESP 16; TEMP 36.6
--- NOTE | 2018-03-05 17:13 | PCM.WC.PN ---
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 Current Visit: Yes Code(s): L97.513 - Non-pressure chronic ulcer of other part of right foot with necrosis of muscle (2) Malnutrition Status: Suspected Current Visit: Yes Code(s): E46 - Unspecified protein-calorie malnutrition (3) Delayed wound healing Status: Chronic Current Visit: Yes Code(s): T14.8XXD - Other injury of unspecified body region, subsequent encounter (4) Laceration of great toe of right foot Status: Chronic Current Visit: Yes Qualifiers: Code(s): S91.111A - Laceration without foreign body of right great toe without damage to nail, initial encounter (5) Displaced fracture of distal phalanx of right great toe with delayed healing Status: Chronic Current Visit: Yes Code(s): S92.421G - Displaced fracture of distal phalanx of right great toe, subsequent encounter for fracture with delayed healing (6) Closed displaced fracture of distal phalanx of lesser toe of right foot Status: Chronic Current Visit: Yes Qualifiers: Code(s): S92.531A - Displaced fracture of distal phalanx of right lesser toe(s), initial encounter for closed fracture (7) Closed nondisplaced fracture of lesser toe of right foot Status: Acute Current Visit: Yes Code(s): S92.504A - Nondisplaced unspecified fracture of right lesser toe(s), initial encounter for closed fracture (8) Laceration of right great toe without foreign body without damage to nail Status: Acute Current Visit: Yes Qualifiers: Code(s): S91.111A - Laceration without foreign body of right great toe without damage to nail, initial encounter (9) Closed displaced fracture of right great toe Status: Chronic Current Visit: Yes Code(s): S92.401A - Displaced unspecified fracture of right great toe, initial encounter for closed fracture Type of Wound Date of Service: 03/05/18 Chief Complaint: Right toe ulcer History of Wound: This 62-year-old male was seen today for nonhealing right great toe ulcer. He has a hallux fracture. He has completed a course of antibiotics. He denies fever, chill, nausea, vomiting. He does have some pain that is aggravated with direct touch. This is a Workmen's Compensation case. His C9 for additional codes are pending. He denies redness or odor from the wound bed. He continues to wear his splint and specialized fracture shoe. Progress of Wound: Improving quality - Physical Exam Vital Signs Temp Pulse Resp BP 97.8 F 79 16 136/85 H 03/05/18 15:40 10 15:40 10 15:40 03/05/18 15:40 General: Alert, Oriented x3, Cooperative HEENT: Atraumatic Extremities: No cyanosis, Capillary Refill Less than 3 Seconds, No Calf Tenderness - Negative Genaro and Dorsey bilateral, Edema - Mild toe, Peripheral Pulses Normal Skin: Ulcer/ Wound - No purulence, no erythema, streaking, no odor, no infection noted to the right foot. There is exposed tendon. There is no direct probe to bone or joint. The peripheral skin does have hair and skin turgor is fairly normal. There is no longer any eschar noted Wound Measurements and Assessment WC - Nurse 1 - General Ulcer Measurement Start: 03/05/18 15:40 Freq: Status: Active Protocol: Activity Type Activity Date Activity User E-Sign Co-Sign Detail Recorded Client Recorded Date Recorded By Document 03/05/18 15:40 [facility] [id number] 03/05/18 15:51 BM 03/05/18 15:40 Wound Center Nurse 1 [Ulcer Assessment] #1- RT GR TOE -Combined with other wound No -Current Size (cm) - Length 2.3 -Current Size (cm) - Width 3.1 -Current Size (cm) - Depth 0.3 -Total Square Cm 7.13 -Photo Taken No -Epithelialization None Present -Tunneling No -Undermining/Tunneling No -Circular Undermining No -Exudate Amt Small (1-33%) -Exudate Type Serosanguineous -Wound Margin Distinct, Outline Attached -Granulation Amt Medium (34-66%) -Granulation Quality Red -Slough/Fibrin Yes -Necrosis Amt Medium (34-66%) -Necrotic Tissue Type Adherent Slough -Texture (Yulia-wound Skin Appearance) Scarring -Moisture (Yulia-wound Skin Appearance Dry/Scaly ) -Color (Yulia-wound Skin Appearance) Erythema -Temperature (Yulia-wound Skin No Abnormality Appearance) (Pt Warm) -Tenderness on Palpation (Yulia-wound Yes Skin Appearance) -Ulcer Cleansing Rinsed/ Irrigated with Saline -Foul Odor after Cleansing No -Anesthetic Used 4% Lidocaine Solution - Nurse 2 - General Ulcer CM Notes Start: 03/05/18 15:40 Freq: Status: Active Protocol: Activity Type Activity Date Activity User E-Sign Co-Sign Detail Recorded Client Recorded Date Recorded By Document 03/05/18 16:07 JESICA [id number] 03/05/18 16:15 03/05/18 16:07 Wound Center Nurse 2 [Procedure/Treatment] -Time 16:08 -Correct Patient Yes -Correct Side, Site, Position Yes -Correct Procedure Yes -Procedure Performed Yes -Type of Procedure Debridement -Clinical Debridement Subcutaneous -Post Debridement Size (cm) - Length 2.3 -Post Debridement Size (cm) - Width 3.2 -Post Debridement Size (cm) - Depth 0.3 -Total Square Cm 7.36 -Wound/Ulcer Outcome Not Healed -Ulcer Cleansing Rinsed/ Irrigated with Saline -Foul Odor after Cleansing No -Bioengineered Tissue No -Bleeding Controlled with Pressure -Treatment Response Procedure Tolerated Well [See Physician Procedure note for Specifics] Pain Scale: 0-10 Numeric [Pain] -Is Patient Pain Free? Yes Musculoskeletal: No Tenderness to Palpation of Joints or Extremities, Muscle Wasting Neurological: Sensory exam intact to light touch and pain Psych/Mental Status: Normal Affect, Appropriate Debridement Note Post-Debridement Measurements/Treatment - Nurse 2 - General Ulcer CM Notes Start: 03/05/18 15:40 Freq: Status: Active Protocol: Activity Type Activity Date Activity User E-Sign Co-Sign Detail Recorded Client Recorded Date Recorded By Document 03/05/18 16:07 [id number] 03/05/18 16:15 03/05/18 16:07 Wound Center Nurse 2 #1- RT GR TOE -Time 16:08 -Correct Patient Yes -Correct Side, Site, Position Yes -Correct Procedure Yes -Procedure Performed Yes -Type of Procedure Debridement -Clinical Debridement Subcutaneous -Post Debridement Size (cm) - Length 2.3 -Post Debridement Size (cm) - Width 3.2 -Post Debridement Size (cm) - Depth 0.3 -Total Square Cm 7.36 -Wound/Ulcer Outcome Not Healed -Ulcer Cleansing Rinsed/ Irrigated with Saline -Foul Odor after Cleansing No -Bioengineered Tissue No -Bleeding Controlled with Pressure -Treatment Response Procedure Tolerated Well Pain Scale: 0-10 Numeric Is Patient Pain Free? 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 Right great toe ulcer with muscle layer exposed. History of traumatic laceration. Comminuted distal phalanx fracture with delayed healing. Delayed healing. Malnutrition suspected. Peripheral vascular disease has been ruled out Plan: I reviewed and discussed his case. I reviewed his chart including his previous intervention and Worker's Compensation paperwork. Subcutaneous excisional debridement was performed as noted in the clinical nursing panel. I recommend application of Adaptic and hydrogel to keep this wound bed moist. It is located lightly cleansed with soap and water. He was advised to avoid soaking activity. Due to the chronicity of this nonhealing ulcer site and his delayed healing status I recommended application of advanced wound care product, epi cord. The indications, anticipated application, and expected healing management and time were discussed in detail. He understands and is amenable to proceed with the prior authorization. Application will be considered once this is approved and the C9 is processed; this is still pending. A noninvasive vascular study was ordered and this is reviewed. He appears to have normal ankle-brachial indices and appropriate waveforms suggesting healing is possible to the foot. His foot x-ray was reviewed with a comminuted distal phalanx displaced fracture with continued gapping evidence of nonhealing. Overall the hallux remains in a rectus position and there is no soft tissue emphysema, foreign body, or obvious periosteal reaction or destruction. There is also a nondisplaced fracture of the adjacent second toe that does not appear to be healed. Serial x-rays will be obtained throughout his treatment process evaluate for any change. His recent laboratory work from February 12, 2018 was reviewed with a white blood cell count of 9.5 and sedimentation rate of 14. His most recent culture was also reviewed with pseudomonas aeruginosa. It appears this is clinically improved with Levaquin use. Additional antibiotics will be considered if his status worsens. Recommend continued fracture splinting with his toe splint as well as cam walker boot. His cam walker boot will provide better protection and a referral was provided. To keep weight off the fracture site in place weight on the heel. To elevate for additional protection and pain management. To follow-up with orthopedic physician, Dr. Mayberry, as advised. He was advised to follow-up at the wound healing center in 1 week or call sooner if he has any questions or concerns. An additional C9 was previously submitted to include ulcer and also related codes in which he is currently seeking care for at the wound healing center.
[2018-03-12 15:40] VITALS: BP 145/85; PULSE 91; RESP 16; TEMP 36.9
--- NOTE | 2018-03-12 17:00 | PCM.WC.PN ---
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 Current Visit: Yes Code(s): L97.513 - Non-pressure chronic ulcer of other part of right foot with necrosis of muscle (2) Malnutrition Status: Suspected Current Visit: Yes Code(s): E46 - Unspecified protein-calorie malnutrition (3) Delayed wound healing Status: Chronic Current Visit: Yes Code(s): T14.8XXD - Other injury of unspecified body region, subsequent encounter (4) Laceration of great toe of right foot Status: Chronic Current Visit: Yes Qualifiers: Code(s): S91.111A - Laceration without foreign body of right great toe without damage to nail, initial encounter (5) Displaced fracture of distal phalanx of right great toe with delayed healing Status: Chronic Current Visit: Yes Code(s): S92.421G - Displaced fracture of distal phalanx of right great toe, subsequent encounter for fracture with delayed healing (6) Closed displaced fracture of distal phalanx of lesser toe of right foot Status: Chronic Current Visit: Yes Qualifiers: Code(s): S92.531A - Displaced fracture of distal phalanx of right lesser toe(s), initial encounter for closed fracture (7) Closed nondisplaced fracture of lesser toe of right foot Status: Acute Current Visit: Yes Code(s): S92.504A - Nondisplaced unspecified fracture of right lesser toe(s), initial encounter for closed fracture (8) Laceration of right great toe without foreign body without damage to nail Status: Acute Current Visit: Yes Qualifiers: Code(s): S91.111A - Laceration without foreign body of right great toe without damage to nail, initial encounter (9) Closed displaced fracture of right great toe Status: Chronic Current Visit: Yes Code(s): S92.401A - Displaced unspecified fracture of right great toe, initial encounter for closed fracture Type of Wound Date of Service: 03/12/18 Chief Complaint: Right toe ulcer History of Wound: This 62-year-old male was seen today for nonhealing right great toe ulcer. He has a hallux fracture. He has completed a course of antibiotics. He denies fever, chill, nausea, vomiting. This is a Workmen's Compensation case. His C9 for additional codes are pending. He denies redness or odor from the wound bed. He continues to wear his splint and specialized fracture shoe. Progress of Wound: Improving quality - Physical Exam Vital Signs Temp Pulse Resp BP 98.4 F 91 16 145/85 H 03/12/18 15:40 03/12/18 15:40 03/12/18 15:40 03/12/18 15:40 General: Alert, Oriented x3, Cooperative Extremities: No cyanosis, Capillary Refill Less than 3 Seconds, No Calf Tenderness - Negative Genaro and Dorsey sign, Diminished Peripheral Pulses, Edema, Tenderness - Decreased tenderness with wound manipulation right Skin: Ulcer/ Wound - No purulence, erythema, streaking, odor, eschar or exposed bone. There is deeper tendon still exposed and this appears to be healthy. The adjacent skin does have hair and it is slightly atrophic Wound Measurements and Assessment WC - Nurse 1 - General Ulcer Measurement Start: 03/05/18 15:40 Freq: Status: Active Protocol: Activity Type Activity Date Activity User E-Sign Co-Sign Detail Recorded Client Recorded Date Recorded By Document 03/12/18 15:40 [facility] [id number] 03/12/18 15:45 [facility] 03/12/18 15:40 Wound Center Nurse 1 [Ulcer Assessment] #1- RT GR TOE -Combined with other wound No -Current Size (cm) - Length 1.3 -Current Size (cm) - Width 2.9 -Current Size (cm) - Depth 0.3 -Total Square Cm 3.77 -Photo Taken No -Epithelialization None Present -Tunneling No -Undermining/Tunneling No -Circular Undermining No -Exudate Amt Small (1-33%) -Exudate Type Serosanguineous -Wound Margin Distinct, Outline Attached -Granulation Amt Medium (34-66%) -Granulation Quality Red -Slough/Fibrin Yes -Necrosis Amt Medium (34-66%) -Necrotic Tissue Type Adherent Slough -Texture (Yulia-wound Skin Appearance) Scarring -Moisture (Yulia-wound Skin Appearance Dry/Scaly ) -Color (Yulia-wound Skin Appearance) Erythema -Temperature (Yulia-wound Skin No Abnormality Appearance) (Pt Warm) -Tenderness on Palpation (Yulia-wound No Skin Appearance) -Ulcer Cleansing Rinsed/ Irrigated with Saline -Foul Odor after Cleansing No -Anesthetic Used 5% Lidocaine Gel WC - Nurse 2 - General Ulcer CM Notes Start: 10/03/18 15:40 Freq: Status: Active Protocol: Activity Type Activity Date Activity User E-Sign Co-Sign Detail Recorded Client Recorded Date Recorded By Document 03/12/18 16:13 [id number] 03/12/18 16:16 03/12/18 16:13 Wound Center Nurse 2 [Procedure/Treatment] -Time 16:15 -Correct Patient Yes -Correct Side, Site, Position Yes -Correct Procedure Yes -Procedure Performed Yes -Type of Procedure Debridement -Clinical Debridement Subcutaneous -Post Debridement Size (cm) - Length 1.3 -Post Debridement Size (cm) - Width 3.0 -Post Debridement Size (cm) - Depth 0.2 -Total Square Cm 3.90 -Wound/Ulcer Outcome Not Healed -Ulcer Cleansing Rinsed/ Irrigated with Saline -Foul Odor after Cleansing No -Bioengineered Tissue No -Bleeding Controlled with Pressure -Treatment Response Procedure Tolerated Well [See Physician Procedure note for Specifics] Pain Scale: 0-10 Numeric [Pain] -Is Patient Pain Free? Yes Musculoskeletal: No Tenderness to Palpation of Joints or Extremities, Muscle Wasting Neurological: Sensory exam intact to light touch and pain Psych/Mental Status: Normal Affect, Appropriate Debridement Note Post-Debridement Measurements/Treatment WC - Nurse 2 - General Ulcer CM Notes Start: 03/05/18 15:40 Freq: Status: Active Protocol: Activity Type Activity Date Activity User E-Sign Co-Sign Detail Recorded Client Recorded Date Recorded By Document 03/05/18 16:07 [id number] 03/05/18 16:15 Document 03/12/18 16:13 [id number] 03/12/18 16:16 03/05/18 03/12/18 16:07 16:13 Wound Center Nurse 2 #1- RT GR TOE -Time 16:08 16:15 -Correct Patient Yes Yes -Correct Side, Site, Position Yes Yes -Correct Procedure Yes Yes -Procedure Performed Yes Yes -Type of Procedure Debridement Debridement -Clinical Debridement Subcutaneous Subcutaneous -Post Debridement Size (cm) - Length 2.3 1.3 -Post Debridement Size (cm) - Width 3.2 3.0 -Post Debridement Size (cm) - Depth 0.3 0.2 -Total Square Cm 7.36 3.90 -Wound/Ulcer Outcome Not Healed Not Healed -Ulcer Cleansing Rinsed/ Rinsed/ Irrigated with Irrigated with Saline Saline -Foul Odor after Cleansing No No -Bioengineered Tissue No No -Bleeding Controlled with Pressure Pressure -Treatment Response Procedure Procedure Tolerated Well Tolerated Well Pain Scale: 0-10 Numeric Is Patient Pain Free? 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 Right great toe ulcer with muscle layer exposed. History of traumatic laceration. Comminuted distal phalanx fracture with delayed healing. Delayed healing. Malnutrition suspected. Peripheral vascular disease has been ruled out Plan: I reviewed and discussed his case. I reviewed his chart including his previous intervention and Worker's Compensation paperwork. Subcutaneous excisional debridement was performed as noted in the clinical nursing panel. I recommend application of Adaptic and hydrogel to keep this wound bed moist. It is also okay to intermittently apply Madie instead to aid with collagen scaffolding; this is dispensed today. It is located lightly cleansed with soap and water. He was advised to avoid soaking activity. To avoid leaving the site open to the air. Due to the chronicity of this nonhealing ulcer site and his delayed healing status I recommended application of advanced wound care product, epi cord. The indications, anticipated application, and expected healing management and time were discussed in detail. He understands and is amenable to proceed with the prior authorization. Application of this recommended product will be considered once this is approved and the C9 is processed; this is still pending. A noninvasive vascular study was ordered and this is reviewed. He appears to have normal ankle-brachial indices and appropriate waveforms suggesting healing is possible to the foot. His foot x-ray was reviewed with a comminuted distal phalanx displaced fracture with continued gapping evidence of nonhealing. Overall the hallux remains in a rectus position and there is no soft tissue emphysema, foreign body, or obvious periosteal reaction or destruction. There is also a nondisplaced fracture of the adjacent second toe that does not appear to be healed. Serial x-rays will be obtained throughout his treatment process evaluate for any change. His recent laboratory work from February 12, 2018 was reviewed with a white blood cell count of 9.5 and sedimentation rate of 14. His most recent culture was also reviewed with pseudomonas aeruginosa. It appears this is clinically improved with Levaquin use. Additional antibiotics will be considered if his status worsens. Recommend continued fracture splinting with his toe splint as well as cam walker boot. His cam walker boot will provide better protection and a referral was provided. To keep weight off the fracture site in place weight on the heel. To elevate for additional protection and pain management. To follow-up with orthopedic physician, Dr. Mayberry, as advised. He was advised to follow-up at the wound healing center in 1 week or call sooner if he has any questions or concerns. An additional C9 was previously submitted to include ulcer and also related codes in which he is currently seeking care for at the wound healing center.
--- NOTE | 2018-03-12 17:04 | PN.PCM_ITS ---
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 Current Visit: Yes Code(s): L97.513 - Non-pressure chronic ulcer of other part of right foot with necrosis of muscle (2) Malnutrition Status: Suspected Current Visit: Yes Code(s): E46 - Unspecified protein- calorie malnutrition (3) Delayed wound healing Status: Chronic Current Visit: Yes Code(s): T14.8XXD - Other injury of unspecified body region, subsequent encounter (4) Laceration of great toe of right foot Status: Chronic Current Visit: Yes Qualifiers: Code(s): S91.111A - Laceration without foreign body of right great toe without d amage to nail, initial encounter (5) Displaced fracture of distal phalanx of right great toe with delayed healing Status: Chronic Current Visit: Yes Code(s): S92.421G - Displaced fracture of distal phalanx of right great toe, subsequent encounter for fracture with delayed healing (6) Closed displaced fracture of distal phalanx of lesser toe of right foot Status: Chronic Current Visit: Yes Qualifiers: Code(s): S92.531A - Displaced fracture of distal phalanx of right lesser toe(s), initial encounter for closed fracture (7) Closed nondisplaced fracture of lesser toe of right foot Status: Acute Current Visit: Yes Code(s): S92.504A - Nondisplaced unspecified fracture of right lesser toe(s), initial encounter for closed fracture (8) Laceration of right great toe without foreign body without damage to nail Status: Acute Current Visit: Yes Qualifiers: Code(s): S91.111A - Laceration without foreign body of right great toe without damage to nail, initial encounter (9) Closed displaced fracture of right great toe Status: Chronic Current Visit: Yes Code(s): S92.401A - Displaced unspecified fracture of right great toe, initial encounter for closed fracture Type of Wound Date of Service: 03/12/18 Chief Complaint: Right toe ulcer History of Wound: This 62-year-old male was seen today for nonhealing right great toe ulcer. He has a hallux fracture. He has completed a course of antibiotics. He denies fever, chill, nausea, vomiting. This is a Workmen's Compensation case. His C9 for additional codes are pending. He denies redness or odor from the wound bed. He continues to wear his splint and specialized fracture shoe. Progress of Wound: Improving quality - Physical Exam Vital Signs Temp Pulse Resp BP 98.4 F 91 16 145/85 H 03/12/18 15:40 03/12/18 15:40 03/12/18 15:40 03/12/18 15:40 General: Alert, Oriented x3, Cooperative Extremities: No cyanosis, Capillary Refill Less than 3 Seconds, No Calf Tenderness - Negative Genaro and Dorsey sign, Diminished Peripheral Pulses, Edema, Tenderness - Decreased tenderness with wound manipulation right Skin: Ulcer/ Wound - No purulence, erythema, streaking, odor, eschar or exposed bone. There is deeper tendon still exposed and this appears to be healthy. The adjacent skin does have hair and it is slightly atrophic Wound Measurements and Assessment WC - Nurse 1 - General Ulcer Measurement Start: 03/05/18 15:40 Freq: Status: Active Protocol: Activity Type Activity Date Activity User E-Sign Co-Sign Detail Recorded Client Recorded Date Recorded By Document 03/12/18 15:40 [facility] [id number] 03/12/18 15:45 BM 03/12/18 15:40 Wound Center Nurse 1 [Ulcer Assessment] #1- RT GR TOE -Combined with other wound No -Current Size (cm) - Length 1.3 -Current Size (cm) - Width 2.9 -Current Size (cm) - Depth 0.3 -Total Square Cm 3.77 -Photo Taken No -Epithelialization None Present -Tunneling No -Undermining/Tunneling No -Circular Undermining No -Exudate Amt Small (1-33%) -Exudate Type Serosanguineous -Wound Margin Distinct, Outline Attached -Granulation Amt Medium (34-66%) -Granulation Quality Red -Slough/Fibrin Yes -Necrosis Amt Medium (34-66%) -Necrotic Tissue Type Adherent Slough -Texture (Yulia-wound Skin Appearance) Scarring -Moisture (Yulia-wound Skin Appearance Dry/Scaly ) -Color (Yulia-wound Skin Appearance) Erythema -Temperature (Yulia-wound Skin No Abnormality Appearance) (Pt Warm) -Tenderness on Palpation (Yulia-wound No Skin Appearance) -Ulcer Cleansing Rinsed/ Irrigated with Saline -Foul Odor after Cleansing No -Anesthetic Used 5% Lidocaine Gel WC - Nurse 2 - General Ulcer CM Notes Start: 03/05/18 15:40 Freq: Status: Active Protocol: Activity Type Activity Date Activity User E-Sign Co-Sign Detail Recorded Client Recorded Date Recorded By Document 03/12/18 16:13 [id number] 03/12/18 16:16 03/12/18 16:13 Wound Center Nurse 2 [Procedure/Treatment] -Time 16:15 -Correct Patient Yes -Correct Side, Site, Position Yes -Correct Procedure Yes -Procedure Performed Yes -Type of Procedure Debridement -Clinical Debridement Subcutaneous -Post Debridement Size (cm) - Length 1.3 -Post Debridement Size (cm) - Width 3.0 -Post Debridement Size (cm) - Depth 0.2 -Total Square Cm 3.90 -Wound/Ulcer Outcome Not Healed -Ulcer Cleansing Rinsed/ Irrigated with Saline -Foul Odor after Cleansing No -Bioengineered Tissue No -Bleeding Controlled with Pressure -Treatment Response Procedure Tolerated Well [See Physician Procedure note for Specifics] Pain Scale: 0-10 Numeric [Pain] -Is Patient Pain Free? Yes Musculoskeletal: No Tenderness to Palpation of Joints or Extremities, Muscle Wasting Neurological: Sensory exam intact to light touch and pain Psych/Mental Status: Normal Affect, Appropriate Debridement Note Post-Debridement Measurements/Treatment - Nurse 2 - General Ulcer CM Notes Start: 03/05/18 15:40 Freq: Status: Active Protocol: Activity Type Activity Date Activity User E-Sign Co-Sign Detail Recorded Client Recorded Date Recorded By Document 03/05/18 16:07 [id number] 03/05/18 16:15 Document 03/12/18 16:13 [id number] 03/12/18 16:16 03/05/18 03/12/18 16:07 16:13 Wound Center Nurse 2 #1- RT GR TOE -Time 16:08 16:15 -Correct Patient Yes Yes -Correct Side, Site, Position Yes Yes -Correct Procedure Yes Yes -Procedure Performed Yes Yes -Type of Procedure Debridement Debridement -Clinical Debridement Subcutaneous Subcutaneous -Post Debridement Size (cm) - Length 2.3 1.3 -Post Debridement Size (cm) - Width 3.2 3.0 -Post Debridement Size (cm) - Depth 0.3 0.2 -Total Square Cm 7.36 3.90 -Wound/Ulcer Outcome Not Healed Not Healed -Ulcer Cleansing Rinsed/ Rinsed/ Irrigated with Irrigated with Saline Saline -Foul Odor after Cleansing No No -Bioengineered Tissue No No -Bleeding Controlled with Pressure Pressure -Treatment Response Procedure Procedure Tolerated Well Tolerated Well Pain Scale: 0-10 Numeric Is Patient Pain Free? 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 Right great toe ulcer with muscle layer exposed. History of traumatic laceration. Comminuted distal phalanx fracture with delayed healing. Delayed healing. Malnutrition suspected. Peripheral vascular disease has been ruled out Plan: I reviewed and discussed his case. I reviewed his chart including his previous intervention and Worker's Compensation paperwork. Subcutaneous excisional debridement was performed as noted in the clinical nursing panel. I recommend application of Adaptic and hydrogel to keep this wound bed moist. It is also okay to intermittently apply Madie instead to aid with collagen scaffolding; this is dispensed today. It is located lightly cleansed with soap and water. He was advised to avoid soaking activity. To avoid leaving the site open to the air. Due to the chronicity of this nonhealing ulcer site and his delayed healing status I recommended application of advanced wound care product, epi cord. The indications, anticipated application, and expected healing management and time were discussed in detail. He understands and is amenable to proceed with the prior authorization. Application of this recommended product will be considered once this is approved and the C9 is processed; this is still pending. A noninvasive vascular study was ordered and this is reviewed. He appears to have normal ankle-brachial indices and appropriate waveforms suggesting healing is possible to the foot. His foot x-ray was reviewed with a comminuted distal phalanx displaced fracture with continued gapping evidence of nonhealing. Overall the hallux remains in a rectus position and there is no soft tissue emphysema, foreign body, or obvious periosteal reaction or destruction. There is also a nondisplaced fracture of the adjacent second toe that does not appear to be healed. Serial x-rays will be obtained throughout his treatment process evaluate for any change. His recent laboratory work from February 12, 2018 was reviewed with a white blood cell count of 9.5 and sedimentation rate of 14. His most recent culture was also reviewed with pseudomonas aeruginosa. It appears this is clinically improved with Levaquin use. Additional antibiotics will be considered if his status worsens. Recommend continued fracture splinting with his toe splint as well as cam walker boot. His cam walker boot will provide better protection and a referral was provided. To keep weight off the fracture site in place weight on the heel. To elevate for additional protection and pain management. To follow-up with orthopedic physician, Dr. Mayberry, as advised. He was advised to follow-up at the wound healing center in 1 week or call sooner if he has any questions or concerns. An additional C9 was previously submitted to include ulcer and also related codes in which he is currently seeking care for at the wound healing center.
[2018-03-20 09:19] VITALS: BP 145/85; PULSE 83; RESP 16; TEMP 37
--- NOTE | 2018-03-20 09:52 | PCM.WC.PN ---
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 Current Visit: Yes Code(s): L97.513 - Non-pressure chronic ulcer of other part of right foot with necrosis of muscle (2) Malnutrition Status: Suspected Current Visit: Yes Code(s): E46 - Unspecified protein-calorie malnutrition (3) Delayed wound healing Status: Chronic Current Visit: Yes Code(s): T14.8XXD - Other injury of unspecified body region, subsequent encounter (4) Laceration of great toe of right foot Status: Chronic Current Visit: Yes Qualifiers: Code(s): S91.111A - Laceration without foreign body of right great toe without damage to nail, initial encounter (5) Displaced fracture of distal phalanx of right great toe with delayed healing Status: Chronic Current Visit: Yes Code(s): S92.421G - Displaced fracture of distal phalanx of right great toe, subsequent encounter for fracture with delayed healing (6) Closed displaced fracture of distal phalanx of lesser toe of right foot Status: Chronic Current Visit: Yes Qualifiers: Code(s): S92.531A - Displaced fracture of distal phalanx of right lesser toe(s), initial encounter for closed fracture (7) Closed nondisplaced fracture of lesser toe of right foot Status: Acute Current Visit: Yes Code(s): S92.504A - Nondisplaced unspecified fracture of right lesser toe(s), initial encounter for closed fracture (8) Laceration of right great toe without foreign body without damage to nail Status: Acute Current Visit: Yes Qualifiers: Code(s): S91.111A - Laceration without foreign body of right great toe without damage to nail, initial encounter (9) Closed displaced fracture of right great toe Status: Chronic Current Visit: Yes Code(s): S92.401A - Displaced unspecified fracture of right great toe, initial encounter for closed fracture Type of Wound Chief Complaint: Right toe ulcer History of Wound: This 62-year-old male was seen today for nonhealing right great toe ulcer. He has a hallux fracture. He has completed a course of antibiotics. He denies fever, chill, nausea, vomiting. This is a Workmen's Compensation case. His C9 for additional codes are pending. He denies redness or odor from the wound bed. He continues to wear his splint and specialized fracture shoe. Progress of Wound: Improvement noted today - Physical Exam Vital Signs Temp Pulse Resp BP 98.6 F 83 16 145/85 H 03/20/18 09:19 03/20/18 09:19 03/20/18 09:19 03/20/18 09:19 General: Alert, Oriented x3, Cooperative, No apparent distress Extremities: No cyanosis, Capillary Refill Less than 3 Seconds, No Calf Tenderness - Negative Genaro and Dorsey sign, Diminished Peripheral Pulses, Edema, Tenderness - Very slight tenderness with ulcer manipulation Skin: Ulcer/ Wound - There continues to be no purulence, no surrounding cellulitis or erythema, no odor, no probing to bone, no tracking, no undermining. Some tendon still exposed and still appears healthy at this time. Wound Measurements and Assessment WC - Nurse 1 - General Ulcer Measurement Start: 03/05/18 15:40 Freq: Status: Active Protocol: Activity Type Activity Date Activity User E-Sign Co-Sign Detail Recorded Client Recorded Date Recorded By Document 03/20/18 09: [facility] [id number] 03/20/18 09:22 [facility] 03/20/18 09:19 Wound Center Nurse 1 [Ulcer Assessment] #1- RT GR TOE -Combined with other wound No -Current Size (cm) - Length 0.8 -Current Size (cm) - Width 2.6 -Current Size (cm) - Depth 0.5 -Total Square Cm 2.08 -Date of Last Picture (Recall this 03/20/18 field) -Photo Taken Yes -Tunneling No -Undermining/Tunneling No -Circular Undermining No -Exudate Amt Small (1-33%) -Exudate Type Serosanguineous -Wound Margin Distinct, Outline Attached -Granulation Amt Medium (34-66%) -Granulation Quality Red -Slough/Fibrin Yes -Necrosis Amt Medium (34-66%) -Necrotic Tissue Type Adherent Slough -Texture (Yulia-wound Skin Appearance) Rash -Moisture (Yulia-wound Skin Appearance Dry/Scaly ) -Color (Yulia-wound Skin Appearance) Erythema -Temperature (Yulia-wound Skin No Abnormality Appearance) (Pt Warm) -Tenderness on Palpation (Yulia-wound No Skin Appearance) -Ulcer Cleansing Rinsed/ Irrigated with Saline -Foul Odor after Cleansing No -Anesthetic Used 4% Lidocaine Solution 5% Lidocaine Gel - Nurse 2 - General Ulcer CM Notes Start: 03/05/18 15:40 Freq: Status: Active Protocol: Activity Type Activity Date Activity User E-Sign Co-Sign Detail Recorded Client Recorded Date Recorded By Document 03/20/18 09:45 DV [id number] 03/20/18 09:51 DV 03/20/18 09:45 Wound Center Nurse 2 [Procedure/Treatment] -Time 09:48 -Correct Patient Yes -Correct Side, Site, Position Yes -Correct Procedure Yes -Procedure Performed Yes -Type of Procedure Debridement -Clinical Debridement Subcutaneous -Post Debridement Size (cm) - Length 1.6 -Post Debridement Size (cm) - Width 2.5 -Post Debridement Size (cm) - Depth 0.3 -Total Square Cm 4.00 -Wound/Ulcer Outcome Not Healed -Ulcer Cleansing Rinsed/ Irrigated with Saline -Foul Odor after Cleansing No -Bioengineered Tissue Yes -Type of bioengineered Tissue EPICORD -Expiration Date 11/01/22 -Product Lot Number [id number] -Percent Used 100 -Saline Lot Number [id number] -Bleeding Controlled with Pressure -Treatment Response Procedure Tolerated Well [See Physician Procedure note for Specifics] Pain Scale: 0-10 Numeric [Pain] -Is Patient Pain Free? Yes Musculoskeletal: No Tenderness to Palpation of Joints or Extremities, Muscle Wasting Neurological: Sensory exam intact to light touch and pain Psych/Mental Status: Normal Affect, Appropriate Debridement Note Post-Debridement Measurements/Treatment - Nurse 2 - General Ulcer CM Notes Start: 03/05/18 15:40 Freq: Status: Active Protocol: Activity Type Activity Date Activity User E-Sign Co-Sign Detail Recorded Client Recorded Date Recorded By Document 03/05/18 16:07 [id number] 03/05/18 16:15 Document 03/12/18 16:13 [id number] 03/12/18 16:16 Document 03/20/18 09:45 DV [id number] 03/20/18 09:51 DV 03/05/18 03/12/18 03/20/18 16:07 16:13 09:45 Wound Center Nurse 2 #1- RT GR TOE -Time 16:08 16:15 09:48 -Correct Patient Yes Yes Yes -Correct Side, Site, Position Yes Yes Yes -Correct Procedure Yes Yes Yes -Procedure Performed Yes Yes Yes -Type of Procedure Debridement Debridement Debridement -Clinical Debridement Subcutaneous Subcutaneous Subcutaneous -Post Debridement Size (cm) - Length 2.3 1.3 1.6 -Post Debridement Size (cm) - Width 3.2 3.0 2.5 -Post Debridement Size (cm) - Depth 0.3 0.2 0.3 -Total Square Cm 7.36 3.90 4.00 -Wound/Ulcer Outcome Not Healed Not Healed Not Healed -Ulcer Cleansing Rinsed/ Rinsed/ Rinsed/ Irrigated with Irrigated with Irrigated with Saline Saline Saline -Foul Odor after Cleansing No No No -Bioengineered Tissue No No Yes -Type of bioengineered Tissue EPICORD -Expiration Date 11/01/22 -Product Lot Number [id number] -Percent Used 100 -Saline Lot Number [id number] -Bleeding Controlled with Pressure Pressure Pressure -Treatment Response Procedure Procedure Procedure Tolerated Well Tolerated Well Tolerated Well Pain Scale: 0-10 Numeric Is Patient Pain Free? 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 Right great toe ulcer with muscle layer exposed. History of traumatic laceration. Comminuted distal phalanx fracture with delayed healing. Delayed healing. Malnutrition suspected. Peripheral vascular disease has been ruled out Plan: This patient was seen this week as a courtesy visit for Dr. Snowden. I reviewed and discussed his case. A subcutaneous excisional debridement was performed as noted in the clinical nursing panel. Once complete the ulcer site was carefully cleansed and the first Epicord application was applied per pneumatic tube fitter's guidelines followed by wound veil, Steri-Strips, and a dry sterile dressing. Patient was instructed that he could change the outer layer dressings if needed over the course of the next week, but he is to keep everything intact under the level of the Steri-Strips and wound veil. To avoid leaving the site open to the air. A noninvasive vascular study was ordered and this was previously reviewed by Dr Snowden. He appears to have normal ankle-brachial indices and appropriate waveforms suggesting healing is possible to the foot. His foot x-ray was reviewed by Dr. Snowden with a comminuted distal phalanx displaced fracture with continued gapping evidence of nonhealing. Overall the hallux remains in a rectus position and there is no soft tissue emphysema, foreign body, or obvious periosteal reaction or destruction. There is also a nondisplaced fracture of the adjacent second toe that does not appear to be healed. Serial x-rays will be obtained throughout his treatment process to evaluate for any change. His recent laboratory work from February 12, 2018 was reviewed with a white blood cell count of 9.5 and sedimentation rate of 14. His most recent culture was also reviewed with pseudomonas aeruginosa. It appears this is clinically improved with Levaquin use. Additional antibiotics will be considered if his status worsens. Recommend continued fracture splinting with his toe splint as well as cam walker boot. To keep weight off the fracture site in place weight on the heel. To elevate for additional protection and pain management. To follow-up with orthopedic physician, Dr. Mayberry, as advised. He was advised to follow-up at the wound healing center in 1 week or call sooner if he has any questions or concerns.
--- NOTE | 2018-03-20 09:56 | PN.PCM_ITS ---
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 Current Visit: Yes Code(s): L97.513 - Non-pressure chronic ulcer of other part of right foot with necrosis of muscle (2) Malnutrition Status: Suspected Current Visit: Yes Code(s): E46 - Unspecified protein- calorie malnutrition (3) Delayed wound healing Status: Chronic Current Visit: Yes Code(s): T14.8XXD - Other injury of unspecified body region, subsequent encounter (4) Laceration of great toe of right foot Status: Chronic Current Visit: Yes Qualifiers: Code(s): S91.111A - Laceration without foreign body of right great toe without d amage to nail, initial encounter (5) Displaced fracture of distal phalanx of right great toe with delayed healing Status: Chronic Current Visit: Yes Code(s): S92.421G - Displaced fracture of distal phalanx of right great toe, subsequent encounter for fracture with delayed healing (6) Closed displaced fracture of distal phalanx of lesser toe of right foot Status: Chronic Current Visit: Yes Qualifiers: Code(s): S92.531A - Displaced fracture of distal phalanx of right lesser toe(s), initial encounter for closed fracture (7) Closed nondisplaced fracture of lesser toe of right foot Status: Acute Current Visit: Yes Code(s): S92.504A - Nondisplaced unspecified fracture of right lesser toe(s), initial encounter for closed fracture (8) Laceration of right great toe without foreign body without damage to nail Status: Acute Current Visit: Yes Qualifiers: Code(s): S91.111A - Laceration without foreign body of right great toe without damage to nail, initial encounter (9) Closed displaced fracture of right great toe Status: Chronic Current Visit: Yes Code(s): S92.401A - Displaced unspecified fracture of right great toe, initial encounter for closed fracture Type of Wound Chief Complaint: Right toe ulcer History of Wound: This 62-year-old male was seen today for nonhealing right great toe ulcer. He has a hallux fracture. He has completed a course of antibiotics. He denies fever, chill, nausea, vomiting. This is a Workmen's Compensation case. His C9 for additional codes are pending. He denies redness or odor from the wound bed. He continues to wear his splint and specialized fracture shoe. Progress of Wound: Improvement noted today - Physical Exam Vital Signs Temp Pulse Resp BP 98.6 F 83 16 145/85 H 03/20/18 09:19 03/20/18 09:19 03/20/18 09:19 03/20/18 09:19 General: Alert, Oriented x3, Cooperative, No apparent distress Extremities: No cyanosis, Capillary Refill Less than 3 Seconds, No Calf Tenderness - Negative Genaro and Dorsey sign, Diminished Peripheral Pulses, Edema, Tenderness - Very slight tenderness with ulcer manipulation Skin: Ulcer/ Wound - There continues to be no purulence, no surrounding cellulitis or erythema, no odor, no probing to bone, no tracking, no undermining. Some tendon still exposed and still appears healthy at this time. Wound Measurements and Assessment WC - Nurse 1 - General Ulcer Measurement Start: 03/05/18 15:40 Freq: Status: Active Protocol: Activity Type Activity Date Activity User E-Sign Co-Sign Detail Recorded Client Recorded Date Recorded By Document 03/20/18 09:19 [facility] [id number] 03/20/18 09:22 [facility] 03/20/18 09:19 Wound Center Nurse 1 [Ulcer Assessment] #1- RT GR TOE -Combined with other wound No -Current Size (cm) - Length 0.8 -Current Size (cm) - Width 2.6 -Current Size (cm) - Depth 0.5 -Total Square Cm 2.08 -Date of Last Picture (Recall this 03/20/18 field) -Photo Taken Yes -Tunneling No -Undermining/Tunneling No -Circular Undermining No -Exudate Amt Small (1-33%) -Exudate Type Serosanguineous -Wound Margin Distinct, Outline Attached -Granulation Amt Medium (34-66%) -Granulation Quality Red -Slough/Fibrin Yes -Necrosis Amt Medium (34-66%) -Necrotic Tissue Type Adherent Slough -Texture (Yulia-wound Skin Appearance) Rash -Moisture (Yulia-wound Skin Appearance Dry/Scaly ) -Color (Yulia-wound Skin Appearance) Erythema -Temperature (Yulia-wound Skin No Abnormality Appearance) (Pt Warm) -Tenderness on Palpation (Yulia-wound No Skin Appearance) -Ulcer Cleansing Rinsed/ Irrigated with Saline -Foul Odor after Cleansing No -Anesthetic Used 4% Lidocaine Solution 5% Lidocaine Gel - Nurse 2 - General Ulcer CM Notes Start: 03/05/18 15:40 Freq: Status: Active Protocol: Activity Type Activity Date Activity User E-Sign Co-Sign Detail Recorded Client Recorded Date Recorded By Document 03/20/18 09:45 DV [id number] 03/20/18 09:51 DV 03/20/18 09:45 Wound Center Nurse 2 [Procedure/Treatment] -Time 09:48 -Correct Patient Yes -Correct Side, Site, Position Yes -Correct Procedure Yes -Procedure Performed Yes -Type of Procedure Debridement -Clinical Debridement Subcutaneous -Post Debridement Size (cm) - Length 1.6 -Post Debridement Size (cm) - Width 2.5 -Post Debridement Size (cm) - Depth 0.3 -Total Square Cm 4.00 -Wound/Ulcer Outcome Not Healed -Ulcer Cleansing Rinsed/ Irrigated with Saline -Foul Odor after Cleansing No -Bioengineered Tissue Yes -Type of bioengineered Tissue EPICORD -Expiration Date 11/01/22 -Product Lot Number [id number] -Percent Used 100 -Saline Lot Number 70639 -Bleeding Controlled with Pressure -Treatment Response Procedure Tolerated Well [See Physician Procedure note for Specifics] Pain Scale: 0-10 Numeric [Pain] -Is Patient Pain Free? Yes Musculoskeletal: No Tenderness to Palpation of Joints or Extremities, Muscle Wasting Neurological: Sensory exam intact to light touch and pain Psych/Mental Status: Normal Affect, Appropriate Debridement Note Post-Debridement Measurements/Treatment - Nurse 2 - General Ulcer CM Notes Start: 03/05/18 15:40 Freq: Status: Active Protocol: Activity Type Activity Date Activity User E-Sign Co-Sign Detail Recorded Client Recorded Date Recorded By Document 03/05/18 16:07 [id number] 03/05/18 16:15 Document 03/12/18 16:13 [id number] 03/12/18 16:16 Document 03/20/18 09:45 DV [id number] 03/20/18 09:51 DV 03/05/18 03/12/18 03/20/18 16:07 16:13 09:45 Wound Center Nurse 2 #1- RT GR TOE -Time 16:08 16:15 09:48 -Correct Patient Yes Yes Yes -Correct Side, Site, Position Yes Yes Yes -Correct Procedure Yes Yes Yes -Procedure Performed Yes Yes Yes -Type of Procedure Debridement Debridement Debridement -Clinical Debridement Subcutaneous Subcutaneous Subcutaneous -Post Debridement Size (cm) - Length 2.3 1.3 1.6 -Post Debridement Size (cm) - Width 3.2 3.0 2.5 -Post Debridement Size (cm) - Depth 0.3 0.2 0.3 -Total Square Cm 7.36 3.90 4.00 -Wound/Ulcer Outcome Not Healed Not Healed Not Healed -Ulcer Cleansing Rinsed/ Rinsed/ Rinsed/ Irrigated with Irrigated with Irrigated with Saline Saline Saline -Foul Odor after Cleansing No No No -Bioengineered Tissue No No Yes -Type of bioengineered Tissue EPICORD -Expiration Date 11/01/22 -Product Lot Number [id number] -Percent Used 100 -Saline Lot Number [id number] -Bleeding Controlled with Pressure Pressure Pressure -Treatment Response Procedure Procedure Procedure Tolerated Well Tolerated Well Tolerated Well Pain Scale: 0-10 Numeric Is Patient Pain Free? 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 Right great toe ulcer with muscle layer exposed. History of traumatic laceration. Comminuted distal phalanx fracture with delayed healing. Delayed healing. Malnutrition suspected. Peripheral vascular disease has been ruled out Plan: This patient was seen this week as a courtesy visit for Dr. Snowden. I reviewed and discussed his case. A subcutaneous excisional debridement was performed as noted in the clinical nursing panel. Once complete the ulcer site was carefully cleansed and the first Epicord application was applied per electrical laboratory technician's guidelines followed by wound veil, Steri-Strips, and a dry sterile dressing. Patient was instructed that he could change the outer layer dressings if needed over the course of the next week, but he is to keep everything intact under the level of the Steri-Strips and wound veil. To avoid leaving the site open to the air. A noninvasive vascular study was ordered and this was previously reviewed by Dr Snowden. He appears to have normal ankle- brachial indices and appropriate waveforms suggesting healing is possible to the foot. His foot x-ray was reviewed by Dr. Snowden with a comminuted distal phalanx displaced fracture with continued gapping evidence of nonhealing. Overall the hallux remains in a rectus position and there is no soft tissue emphysema, foreign body, or obvious periosteal reaction or destruction. There is also a nondisplaced fracture of the adjacent second toe that does not appear to be healed. Serial x-rays will be obtained throughout his treatment process to evaluate for any change. His recent laboratory work from February 12, 2018 was reviewed with a white blood cell count of 9.5 and sedimentation rate of 14. His most recent culture was also reviewed with pseudomonas aeruginosa. It appears this is clinically improved with Levaquin use. Additional antibiotics will be considered if his status worsens. Recommend continued fracture splinting with his toe splint as well as cam walker boot. To keep weight off the fracture site in place weight on the heel. To elevate for additional protection and pain management. To follow-up with orthopedic physician, Dr. Mayberry, as advised. He was advised to follow-up at the wound healing center in 1 week or call sooner if he has any questions or concerns.
[2018-03-26 15:35] VITALS: BP 143/83; PULSE 85; RESP 18; TEMP 36.3
--- NOTE | 2018-03-26 16:49 | PCM.WC.PN ---
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 Code(s): L97.513 - Non-pressure chronic ulcer of other part of right foot with necrosis of muscle (2) Malnutrition Status: Suspected Code(s): E46 - Unspecified protein-calorie malnutrition (3) Delayed wound healing Status: Chronic Code(s): T14.8XXD - Other injury of unspecified body region, subsequent encounter (4) Laceration of great toe of right foot Status: Chronic Qualifiers: Code(s): S91.111A - Laceration without foreign body of right great toe without damage to nail, initial encounter (5) Displaced fracture of distal phalanx of right great toe with delayed healing Status: Chronic Code(s): S92.421G - Displaced fracture of distal phalanx of right great toe, subsequent encounter for fracture with delayed healing (6) Closed displaced fracture of distal phalanx of lesser toe of right foot Status: Chronic Qualifiers: Code(s): S92.531A - Displaced fracture of distal phalanx of right lesser toe(s), initial encounter for closed fracture (7) Closed nondisplaced fracture of lesser toe of right foot Status: Acute Code(s): S92.504A - Nondisplaced unspecified fracture of right lesser toe(s), initial encounter for closed fracture (8) Laceration of right great toe without foreign body without damage to nail Status: Acute Qualifiers: Code(s): S91.111A - Laceration without foreign body of right great toe without damage to nail, initial encounter (9) Closed displaced fracture of right great toe Status: Chronic Code(s): S92.401A - Displaced unspecified fracture of right great toe, initial encounter for closed fracture Type of Wound Date of Service: 03/26/18 Chief Complaint: Right toe ulcer History of Wound: This 62-year-old male was seen today for nonhealing right great toe ulcer. He has a hallux fracture. He has completed a course of antibiotics. He denies fever, chill, nausea, vomiting. This is a Workmen's Compensation case. He denies redness or odor from the wound bed. He continues to wear his splint and specialized fracture shoe. He had an advanced wound care product, epi cord applied last week with Dr. Hayden. He continues to wear his toe splint. Progress of Wound: Stable - Physical Exam Vital Signs Temp Pulse Resp BP 97.3 F L 85 18 143/83 H 03/26/18 15:35 03/26/18 15:35 03/26/18 15:35 03/26/18 15:35 General: Alert, Oriented x3, Cooperative Extremities: No cyanosis, Capillary Refill Less than 3 Seconds, No Calf Tenderness - Negative Genaro and Dorsey, Edema - Mild toe, decreased, Peripheral Pulses Normal - DP, Tenderness - Decreased tenderness with fracture compression Skin: Ulcer/ Wound - no purulence, erythema, streaking, odor, or infection. The advanced wound care product, epi cord, is incorporating well and has a wound veil Steri-Strips intact.; this was left in place for another week the peripheral skin does have hair and is normal skin turgor Wound Measurements and Assessment WC - Nurse 1 - General Ulcer Measurement Start: 03/05/18 15:40 Freq: Status: Active Protocol: Activity Type Activity Date Activity User E-Sign Co-Sign Detail Recorded Client Recorded Date Recorded By Document 03/26/18 15:35 DL [id number] 03/26/18 15:39 DL 03/26/18 15:35 Wound Center Nurse 1 [Ulcer Assessment] #1- RT GR TOE -Photo Taken No -Exudate Amt Small (1-33%) -Exudate Type Yellow/Green -Texture (Yulia-wound Skin Appearance) Localized Edema -Moisture (Yulia-wound Skin Appearance No Abnormality ) -Color (Yulia-wound Skin Appearance) No Abnormality -Temperature (Yulia-wound Skin No Abnormality Appearance) (Pt Warm) -Ulcer Cleansing Rinsed/ Irrigated with Saline -Foul Odor after Cleansing No WC - Nurse 2 - General Ulcer CM Notes Start: 03/05/18 15:40 Freq: Status: Active Protocol: Activity Type Activity Date Activity User E-Sign Co-Sign Detail Recorded Client Recorded Date Recorded By Document 03/26/18 16:31 TM [id number] 03/26/18 16:35 TM 03/26/18 16:31 Wound Center Nurse 2 [Procedure/Treatment] -Time 16:33 -Correct Patient Yes -Correct Side, Site, Position Yes -Correct Procedure Yes -Procedure Performed Yes -Post Debridement Size (cm) - Length 1.6 -Post Debridement Size (cm) - Width 2.5 -Post Debridement Size (cm) - Depth 0.3 -Total Square Cm 4.00 -Wound/Ulcer Outcome Not Healed -Ulcer Cleansing Rinsed/ Irrigated with Saline -Foul Odor after Cleansing No -Bioengineered Tissue No -Bleeding Controlled with NA -Other epicord intact covered with wound veil secured with steri strips -Treatment Response Procedure Tolerated Well [See Physician Procedure note for Specifics] Pain Scale: 0-10 Numeric [Pain] -Is Patient Pain Free? Yes Musculoskeletal: No Tenderness to Palpation of Joints or Extremities, Muscle Wasting Neurological: Sensory exam intact to light touch and pain Psych/Mental Status: Normal Affect, Appropriate Debridement Note Post-Debridement Measurements/Treatment WC - Nurse 2 - General Ulcer CM Notes Start: 03/05/18 15:40 Freq: Status: Active Protocol: Activity Type Activity Date Activity User E-Sign Co-Sign Detail Recorded Client Recorded Date Recorded By Document 03/05/18 16:07 [id number] 03/05/18 16:15 Document 03/12/18 16:13 [id number] 03/12/18 16:16 Document 03/20/18 09:45 DV [id number] 03/20/18 09:51 DV Document 03/26/18 16:31 TM [id number] 03/26/18 16:35 TM 03/05/18 03/12/18 03/20/18 16:07 16:13 09:45 Wound Center Nurse 2 #1- RT GR TOE -Time 16:08 16:15 09:48 -Correct Patient Yes Yes Yes -Correct Side, Site, Position Yes Yes Yes -Correct Procedure Yes Yes Yes -Procedure Performed Yes Yes Yes -Type of Procedure Debridement Debridement Debridement -Clinical Debridement Subcutaneous Subcutaneous Subcutaneous -Post Debridement Size (cm) - Length 2.3 1.3 1.6 -Post Debridement Size (cm) - Width 3.2 3.0 2.5 -Post Debridement Size (cm) - Depth 0.3 0.2 0.3 -Total Square Cm 7.36 3.90 4.00 -Wound/Ulcer Outcome Not Healed Not Healed Not Healed -Ulcer Cleansing Rinsed/ Rinsed/ Rinsed/ Irrigated with Irrigated with Irrigated with Saline Saline Saline -Foul Odor after Cleansing No No No -Bioengineered Tissue No No Yes -Type of bioengineered Tissue EPICORD -Expiration Date 11/01/22 -Product Lot Number [id number] -Percent Used 100 -Saline Lot Number [id number] -Bleeding Controlled with Pressure Pressure Pressure -Other -Treatment Response Procedure Procedure Procedure Tolerated Well Tolerated Well Tolerated Well Pain Scale: 0-10 Numeric Is Patient Pain Free? Yes Yes Yes 03/26/18 16:31 Wound Center Nurse 2 #1- RT GR TOE -Time 16:33 -Correct Patient Yes -Correct Side, Site, Position Yes -Correct Procedure Yes -Procedure Performed Yes -Type of Procedure -Clinical Debridement -Post Debridement Size (cm) - Length 1.6 -Post Debridement Size (cm) - Width 2.5 -Post Debridement Size (cm) - Depth 0.3 -Total Square Cm 4.00 -Wound/Ulcer Outcome Not Healed -Ulcer Cleansing Rinsed/ Irrigated with Saline -Foul Odor after Cleansing No -Bioengineered Tissue No -Type of bioengineered Tissue -Expiration Date -Product Lot Number -Percent Used -Saline Lot Number -Bleeding Controlled with NA -Other epicord intact covered with wound veil secured with steri strips -Treatment Response Procedure Tolerated Well Pain Scale: 0-10 Numeric Is Patient Pain Free? Yes No debridement was completed today - The advanced wound care product was left in place and additional application with ulcer debridement will be considered next week Assessment/Plan Assessment: Cellulitis right hallux resolved. Right great toe ulcer with muscle layer exposed. History of traumatic laceration. Comminuted distal phalanx fracture with delayed healing. Delayed healing. Malnutrition suspected. Peripheral vascular disease has been ruled out Plan: I reviewed and discussed his case. A subcutaneous excisional debridement was performed as noted in the clinical nursing panel. The epi cord was applied last week and this was left intact today. I recommend he keep this area clean dry and intact for another week. A secondary dressing was applied. Patient was instructed that he could change the outer layer dressings if needed over the course of the next week, but he is to keep everything intact under the level of the Steri-Strips and wound veil. To avoid leaving the site open to the air. A noninvasive vascular study was ordered and this was previously reviewed. He appears to have normal ankle-brachial indices and appropriate waveforms suggestin previously with a comminuted distal phalanx displaced fracture with continued gapping evidence of nonhealing. Overall the hallux remains in a rectus position and there is no soft tissue emphysema, foreign body, or obvious periosteal reaction or destruction. There is also a nondisplaced fracture of the adjacent second toe that does not appear to be healed. Serial x-rays will be obtained throughout his treatment process to evaluate for any change this order will be placed next week. His recent laboratory work from February 12, 2018 was reviewed with a white blood cell count of 9.5 and sedimentation rate of 14. His most recent culture was also reviewed with pseudomonas aeruginosa. It appears this is clinically improved with Levaquin use. Additional antibiotics are not recommended at this time. Recommend continued fracture splinting with his toe splint as well as cam walker boot. To keep weight off the fracture site in place weight on the heel. To elevate for additional protection and pain management. To follow-up with orthopedic physician, Dr. Mayberry, as advised. He was advised to follow-up at the wound healing center in 1 week or call sooner if he has any questions or concerns.
[2018-04-02 15:48] VITALS: BP 141/80; PULSE 69; RESP 16; TEMP 36.6
--- NOTE | 2018-04-02 16:16 | PN.PCM_ITS ---
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 Current Visit: Yes Code(s): L97.513 - Non-pressure chronic ulcer of other part of right foot with necrosis of muscle (2) Malnutrition Status: Suspected Current Visit: Yes Code(s): E46 - Unspecified protein- calorie malnutrition (3) Delayed wound healing Status: Chronic Current Visit: Yes Code(s): T14.8XXD - Other injury of unspecified body region, subsequent encounter (4) Laceration of great toe of right foot Status: Chronic Current Visit: Yes Qualifiers: Code(s): S91.111A - Laceration without foreign body of right great toe without d amage to nail, initial encounter (5) Displaced fracture of distal phalanx of right great toe with delayed healing Status: Chronic Current Visit: Yes Code(s): S92.421G - Displaced fracture of distal phalanx of right great toe, subsequent encounter for fracture with delayed healing (6) Closed displaced fracture of distal phalanx of lesser toe of right foot Status: Chronic Current Visit: Yes Qualifiers: Code(s): S92.531A - Displaced fracture of distal phalanx of right lesser toe(s), initial encounter for closed fracture (7) Closed nondisplaced fracture of lesser toe of right foot Status: Acute Current Visit: Yes Code(s): S92.504A - Nondisplaced unspecified fracture of right lesser toe(s), initial encounter for closed fracture (8) Laceration of right great toe without foreign body without damage to nail Status: Acute Current Visit: Yes Qualifiers: Code(s): S91.111A - Laceration without foreign body of right great toe without damage to nail, initial encounter (9) Closed displaced fracture of right great toe Status: Chronic Current Visit: Yes Code(s): S92.401A - Displaced unspecified fracture of right great toe, initial encounter for closed fracture Type of Wound Date of Service: 04/02/18 Chief Complaint: Right toe ulcer History of Wound: This 62-year-old male was seen today for nonhealing right great toe ulcer. He has a hallux fracture. He has completed a course of antibiotics. He denies fever, chill, nausea, vomiting. This is a Workmen's Compensation case. He denies redness or odor from the wound bed. He continues to wear his splint and specialized fracture shoe. He has a follow-up with his orthopedic surgeon on April 20, 2018. He is kept his epi cord in place as advised. He has minor itching to the site and denies actual pain. Progress of Wound: Improving - Physical Exam Vital Signs Temp Pulse Resp BP 97.9 F 69 16 141/80 H 04/02/18 15:48 04/02/18 15:48 04/02/18 15:48 04/02/18 15:48 General: Alert, Oriented x3, Cooperative Extremities: No cyanosis, Capillary Refill Less than 3 Seconds, No Calf Tenderness, Edema - Mild hallux, Peripheral Pulses Normal Skin: Ulcer/ Wound - no purulence, no erythema, no streaking, no infection. scant tendon exposed and improved granulation tissue noted. the peripheral skin is atrophic and there is some hair noted Wound Measurements and Assessment WC - Nurse 1 - General Ulcer Measurement Start: 03/05/18 15:40 Freq: Status: Active Protocol: Activity Type Activity Date Activity User E-Sign Co-Sign Detail Recorded Client Recorded Date Recorded By Document 04/02/18 15:48 [id number] 04/02/18 15:50 04/02/18 15:48 Wound Center Nurse 1 [Ulcer Assessment] #1- RT GR TOE -Combined with other wound No -Current Size (cm) - Length 1.0 -Current Size (cm) - Width 2.0 -Current Size (cm) - Depth 0.2 -Total Square Cm 2.00 -Photo Taken No -Epithelialization Medium 34-66% -Tunneling No -Undermining/Tunneling No -Circular Undermining No -Exudate Amt Medium (34-66%) -Exudate Type Serosanguineous -Wound Margin Distinct, Outline Attached -Granulation Amt Medium (34-66%) -Granulation Quality Pale [place] -Slough/Fibrin Yes -Necrosis Amt Medium (34-66%) -Necrotic Tissue Type Adherent Slough -Texture (Yulia-wound Skin Appearance) Assessed Scarring -Moisture (Yulia-wound Skin Appearance Assessed ) Dry/Scaly -Color (Yulia-wound Skin Appearance) No Abnormality Assessed -Temperature (Yulia-wound Skin No Abnormality Appearance) (Pt Warm) -Tenderness on Palpation (Yulia-wound No Skin Appearance) -Ulcer Cleansing Rinsed/ Irrigated with Saline -Foul Odor after Cleansing No -Anesthetic Used 4% Lidocaine Solution - Nurse 2 - General Ulcer CM Notes Start: 03/05/18 15:40 Freq: Status: Active Protocol: Activity Type Activity Date Activity User E-Sign Co-Sign Detail Recorded Client Recorded Date Recorded By Document 04/02/18 15:55 [id number] 04/02/18 15:57 04/02/18 15:55 Wound Center Nurse 2 [Procedure/Treatment] -Time 15:55 -Correct Patient Yes -Correct Side, Site, Position Yes -Correct Procedure Yes -Procedure Performed Yes -Type of Procedure Debridement -Clinical Debridement Subcutaneous -Post Debridement Size (cm) - Length 1.1 -Post Debridement Size (cm) - Width 2 -Post Debridement Size (cm) - Depth 0.2 -Total Square Cm 2.2 -Wound/Ulcer Outcome Not Healed -Ulcer Cleansing Rinsed/ Irrigated with Saline -Foul Odor after Cleansing No -Bioengineered Tissue Yes -Type of bioengineered Tissue EPIFIX -Expiration Date 10/01/22 -Product Lot Number [id number] -Percent Used 100 -Saline Lot Number [id number] -Bleeding Controlled with Pressure -Treatment Response Procedure Tolerated Well [See Physician Procedure note for Specifics] Pain Scale: 0-10 Numeric [Pain] -Is Patient Pain Free? Yes Musculoskeletal: No Tenderness to Palpation of Joints or Extremities, - - Rectus hallux and decreased palpation pain to the fracture site noted. Neurological: Sensory exam intact to light touch and pain Psych/Mental Status: Normal Affect, Appropriate Debridement Note Post-Debridement Measurements/Treatment - Nurse 2 - General Ulcer CM Notes Start: 03/05/18 15:40 Freq: Status: Active Protocol: Activity Type Activity Date Activity User E-Sign Co-Sign Detail Recorded Client Recorded Date Recorded By Document 03/05/18 16:07 [id number] 03/05/18 16:15 Document 03/12/18 16:13 [id number] [id number] 03/12/18 16:16 Document 03/20/18 09:45 DV [id number] 03/20/18 09:51 DV Document 03/26/18 16:31 TM [id number] 03/26/18 16:35 TM Document 04/02/18 15:55 [id number] 04/02/18 15:57 03/05/18 03/12/18 03/20/18 16:07 16:13 09:45 Wound Center Nurse 2 #1- RT GR TOE -Time 16:08 16:15 09:48 -Correct Patient Yes Yes Yes -Correct Side, Site, Position Yes Yes Yes -Correct Procedure Yes Yes Yes -Procedure Performed Yes Yes Yes -Type of Procedure Debridement Debridement Debridement -Clinical Debridement Subcutaneous Subcutaneous Subcutaneous -Post Debridement Size (cm) - Length 2.3 1.3 1.6 -Post Debridement Size (cm) - Width 3.2 3.0 2.5 -Post Debridement Size (cm) - Depth 0.3 0.2 0.3 -Total Square Cm 7.36 3.90 4.00 -Wound/Ulcer Outcome Not Healed Not Healed Not Healed -Ulcer Cleansing Rinsed/ Rinsed/ Rinsed/ Irrigated with Irrigated with Irrigated with Saline Saline Saline -Foul Odor after Cleansing No No No -Bioengineered Tissue No No Yes -Type of bioengineered Tissue EPICORD -Expiration Date 11/01/22 -Product Lot Number [id number] -Percent Used 100 -Saline Lot Number [id number] -Bleeding Controlled with Pressure Pressure Pressure -Other -Treatment Response Procedure Procedure Procedure Tolerated Well Tolerated Well Tolerated Well Pain Scale: 0-10 Numeric Is Patient Pain Free? Yes Yes Yes 03/26/18 04/02/18 16:31 15:55 Wound Center Nurse 2 #1- RT GR TOE -Time 16:33 15:55 -Correct Patient Yes Yes -Correct Side, Site, Position Yes Yes -Correct Procedure Yes Yes -Procedure Performed Yes Yes -Type of Procedure Debridement -Clinical Debridement Subcutaneous -Post Debridement Size (cm) - Length 1.6 1.1 -Post Debridement Size (cm) - Width 2.5 2 -Post Debridement Size (cm) - Depth 0.3 0.2 -Total Square Cm 4.00 2.2 -Wound/Ulcer Outcome Not Healed Not Healed -Ulcer Cleansing Rinsed/ Rinsed/ Irrigated with Irrigated with Saline Saline -Foul Odor after Cleansing No No -Bioengineered Tissue No Yes -Type of bioengineered Tissue EPIFIX -Expiration Date 10/01/22 -Product Lot Number [id number] -Percent Used 100 -Saline Lot Number [id number] -Bleeding Controlled with NA Pressure -Other epicord intact covered with wound veil secured with steri strips -Treatment Response Procedure Procedure Tolerated Well Tolerated Well Pain Scale: 0-10 Numeric Is Patient Pain Free? 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 Right great toe ulcer with muscle layer exposed. History of traumatic laceration. Comminuted distal phalanx fracture with delayed healing. Delayed healing. Malnutrition suspected. Peripheral vascular disease has been ruled out Plan: I reviewed and discussed his case. A subcutaneous excisional debridement was performed as noted in the clinical nursing panel. Verbal consent was obtained for application of advanced wound care product, epi fix. This was applied today according to standard protocol and was secured in place with a wound veil and Steri-Strips. The indications, benefits, risks, anticipated healing course and management were discussed in detail. I answered his questions. He is doing very well so far. A secondary dressing was applied. Patient was instructed that he could change the outer layer dressings if needed over the course of the next week. A noninvasive vascular study was ordered and this was previously reviewed. He appears to have normal ankle-brachial indices and appropriate waveforms suggestin previously with a comminuted distal phalanx displaced fracture with continued gapping evidence of nonhealing. Overall the hallux remains in a rectus position and there is no soft tissue emphysema, foreign body, or obvious periosteal reaction or destruction. There is also a no ndisplaced fracture of the adjacent second toe that does not appear to be healed. In order to get a serial x-ray was provided today and will review this at his follow-up and he will also reviewed this with his orthopedic physician. His recent laboratory work from February 12, 2018 was reviewed with a white blood cell count of 9.5 and sedimentation rate of 14. His most recent culture was also reviewed with pseudomonas aeruginosa. It appears this is clinically improved with Levaquin use. Additional antibiotics are not recommended at this time. Recommend continued fracture splinting with his toe splint as well as cam walker boot. To keep weight off the fracture site in place weight on the heel. To elevate for additional protection and pain management. To follow-up with orthopedic physician, Dr. Mayberry, as advised. He was advised to follow-up at the wound healing center in 1 week or call sooner if he has any questions or concerns. It is noted this is a Workmen's Compensation case.
== END 2018-04-02 23:59 ==
LOC: WC 15:45
PROVIDERS: Family Provider Internal Medicine; PCP Internal Medicine; Referring Provider Podiatrist; Visit Provider Podiatrist
DX: L97.513 Non-pressure chronic ulcer of other part of right foot with necrosis of muscle (principal); S92.421G Displaced fracture of distal phalanx of right great toe, subsequent encounter for fracture with delayed healing; X58.XXXD Exposure to other specified factors, subsequent encounter
CPT/HCPCS: 11042; 15275; 99213; Q4131; G0463

== ENCOUNTER → 2018-04-07 08:03 | Outpatient (CLI) | payer OTHER, SELFPAY ==
--- NOTE | 2018-04-07 08:06 | RAD_ITS ---
STUDY: X-RAY RIGHT FOOT, FIRST TOE REASON FOR EXAM: Male, 62 years old. Fracture. Ulceration. TECHNIQUE: 3 view(s) of the toe were obtained. COMPARISON: None. FINDINGS: Comminuted distracted and significantly displaced fractures are seen through the body and tuft of the first distal phalanx. Diffuse soft tissue swelling. Diffuse degenerative changes. RAD/Toe(s) Min 2 Views IMPRESSION: Comminuted and distracted/displaced fractures of the first distal phalanx. Electronically Signed: Cesar Solo MD at 16:30 EST , Service support ,
== END ==
PROVIDERS: Family Provider Internal Medicine; PCP Internal Medicine; Referring Provider Podiatrist; Visit Provider Podiatrist
DX: S92.403A Displaced unspecified fracture of unspecified great toe, initial encounter for closed fracture (principal); L97.509 Non-pressure chronic ulcer of other part of unspecified foot with unspecified severity
CPT/HCPCS: 73660

== ENCOUNTER 2018-04-30 08:30 | Outpatient (RCR) | payer OTHER, SELFPAY ==
[2018-04-03 01:34] VITALS: BP 141/80; PULSE 69; RESP 16; TEMP 36.6
[2018-04-09 15:37] VITALS: BP 137/79; PULSE 76; RESP 18; TEMP 36.2
--- NOTE | 2018-04-09 23:41 | PCM.WC.PN ---
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 Current Visit: Yes Code(s): L97.513 - Non-pressure chronic ulcer of other part of right foot with necrosis of muscle (2) Delayed wound healing Status: Chronic Current Visit: Yes Code(s): T14.8XXD - Other injury of unspecified body region, subsequent encounter (3) Laceration of great toe of right foot Status: Chronic Current Visit: Yes Qualifiers: Code(s): S91.111A - Laceration without foreign body of right great toe without damage to nail, initial encounter (4) Displaced fracture of distal phalanx of right great toe with delayed healing Status: Chronic Current Visit: Yes Code(s): S92.421G - Displaced fracture of distal phalanx of right great toe, subsequent encounter for fracture with delayed healing (5) Closed displaced fracture of distal phalanx of lesser toe of right foot Status: Chronic Current Visit: Yes Qualifiers: Code(s): S92.531A - Displaced fracture of distal phalanx of right lesser toe(s), initial encounter for closed fracture Type of Wound Date of Service: 04/09/18 Chief Complaint: Right toe ulcer History of Wound: This 62-year-old male was seen today for nonhealing right great toe ulcer. He has a hallux fracture. He has completed a course of antibiotics. He denies fever, chill, nausea, vomiting. This is a Workmen's Compensation case. He denies redness or odor from the wound bed. He continues to wear his specialized fracture shoe and admits he excellent third toe splint away. His pain to his fracture site has decreased and intermittently creates an aching sensation.. He has a follow-up with his orthopedic surgeon on April 20, 2018. He is kept his epi fix in place as advised. Progress of Wound: Improving - Physical Exam Vital Signs Temp Pulse Resp BP 97.2 F L 76 18 137/79 H 04/09/18 15:37 04/09/18 15:37 04/09/18 15:37 04/09/18 15:37 General: Alert, Oriented x3, Cooperative Extremities: No cyanosis, Capillary Refill Less than 3 Seconds, No Calf Tenderness - Negative Genaro and Dorsey sign, Diminished Peripheral Pulses, Edema - Decreased toe Skin: Ulcer/ Wound - No purulence, erythema, streaking, odor, or infection. There is continued epithelialization of the tendon is no longer visualized. The peripheral skin does have a hair. Wound Measurements and Assessment WC - Nurse 1 - General Ulcer Measurement Start: 04/09/18 15:36 Freq: Status: Active Protocol: Activity Type Activity Date Activity User E-Sign Co-Sign Detail Recorded Client Recorded Date Recorded By Document 04/09/18 15:37 [id number] 04/09/18 15:43 [email or web address] 04/09/18 15:37 Wound Center Nurse 1 [Ulcer Assessment] #1- RT GR TOE -Current Size (cm) - Length 0.8 -Current Size (cm) - Width 2.5 -Current Size (cm) - Depth 0.1 -Total Square Cm 2.00 -Photo Taken No -Exudate Amt Small (1-33%) -Exudate Type Yellow/Green -Wound Margin Thickened -Granulation Amt Small (1-33%) -Granulation Quality [place] -Necrosis Amt Large (67-100%) -Necrotic Tissue Type Adherent Slough -Structure Exposed N/A -Texture (Yulia-wound Skin Appearance) No Abnormality -Moisture (Yulia-wound Skin Appearance No Abnormality ) -Color (Yulia-wound Skin Appearance) No Abnormality -Temperature (Yulia-wound Skin No Abnormality Appearance) (Pt Warm) -Tenderness on Palpation (Yulia-wound No Skin Appearance) -Ulcer Cleansing Wound Cleanser -Foul Odor after Cleansing No -Anesthetic Used 4% Lidocaine Solution Musculoskeletal: No Tenderness to Palpation of Joints or Extremities, Muscle Wasting, - - There is pain palpation to the fracture site is significantly decreased. There is no longer in pain to the distal hallux compression Neurological: Sensory exam intact to light touch and pain Psych/Mental Status: Normal Affect, Appropriate Debridement Note Wound debrided: dorsal hallux Laterality: Left Type of Debridement: Excisional debridement Anesthesia Used: 4% Lidocaine Solution Depth: in the subcutaneous layer Percentage of wound debrided: 100 Instrument Used: #15 blade Tissue Removed: fibrous, devitalized subcutaneous, biofilm, slough Severity: Fat Layer Exposed Amount of bleeding with debridement: Mild Bleeding Controlled with: Pressure Patient tolerated procedure well Assessment/Plan Active Problems (Last Updated 01/13/18 @ 13:24 by Ronald Nguyen) 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 Right great toe ulcer with muscle layer exposed. History of traumatic laceration. Comminuted distal phalanx fracture with delayed healing. Delayed healing. Malnutrition suspected. Peripheral vascular disease has been ruled out Plan: I reviewed and discussed his case. A subcutaneous excisional debridement was performed as noted in the clinical nursing panel. Verbal consent was obtained for application of advanced wound care product, epi fix. This was applied today according to standard protocol and was secured in place with a wound veil and Steri-Strips. The indications, benefits, risks, anticipated healing course and management were discussed in detail. I answered his questions. He is doing very well so far. A secondary dressing was applied. Patient was instructed that he could change the outer layer dressings if needed over the course of the next week. A noninvasive vascular study was ordered and this was previously reviewed. He appears to have normal ankle-brachial indices and appropriate waveforms suggestin previously with a comminuted distal phalanx displaced fracture with continued gapping evidence of nonhealing. He obtain updated foot x-rays this past week and there is no significant osseous bridging noted. Overall the hallux remains in a rectus position and there is no soft tissue emphysema, foreign body, or obvious periosteal reaction or destruction. There is also a nondisplaced fracture of the adjacent second toe. Follow-up with orthopedics as scheduled. His recent laboratory work from February 12, 2018 was reviewed with a white blood cell count of 9.5 and sedimentation rate of 14. His most recent culture was also reviewed with pseudomonas aeruginosa. It appears this is clinically improved with Levaquin use. Additional antibiotics are not recommended at this time. To keep weight off the fracture site in place weight on the heel. He was advised to follow-up at the wound healing center in 1 week or call sooner if he has any questions or concerns. It is noted this is a Workmen's Compensation case.
[2018-04-16 15:45] VITALS: BP 145/81; PULSE 80; RESP 16; TEMP 37
--- NOTE | 2018-04-16 17:22 | PN.PCM_ITS ---
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 Current Visit: Yes Code(s): L97.513 - Non-pressure chronic ulcer of other part of right foot with necrosis of muscle (2) Delayed wound healing Status: Chronic Current Visit: Yes Code(s): T14.8XXD - Other injury of unspecified body region, subsequent encounter (3) Laceration of great toe of right foot Status: Chronic Current Visit: Yes Qualifiers: Code(s): S91.111A - Laceration without foreign body of right great toe without damage to nail, initial encounter (4) Displaced fracture of distal phalanx of right great toe with delayed healing Status: Chronic Current Visit: Yes Code(s): S92.421G - Displaced fracture of distal phalanx of right great toe, subsequent encounter for fracture with delayed healing (5) Closed displaced fracture of distal phalanx of lesser toe of right foot Status: Chronic Current Visit: Yes Qualifiers: Code(s): S92.531A - Displaced fracture of distal phalanx of right lesser toe(s), initial encounter for closed fracture Type of Wound Date of Service: 04/16/18 Chief Complaint: Right toe ulcer History of Wound: This 62-year-old male was seen today for nonhealing right great toe ulcer. He has a hallux fracture. He has completed a course of antibiotics. He denies fever, chill, nausea, vomiting. This is a Workmen's Compensation case. He denies redness or odor from the wound bed. He continues to wear his specialized fracture shoe. His pain to his fracture site has decreased. He has a follow-up with his orthopedic surgeon tomorrow and he had his foot x-rays updated last week. He is kept his epi fix in place as advised. Progress of Wound: Improving - Physical Exam Vital Signs Temp Pulse Resp BP 98.6 F 80 16 145/81 H 04/16/18 15:45 04/16/18 15:45 04/16/18 15:45 04/16/18 15:45 General: Alert, Oriented x3, Cooperative Extremities: No cyanosis, No edema, Capillary Refill Less than 3 Seconds, No Calf Tenderness, Diminished Peripheral Pulses, - - No pain on palpation to the hallux interphalangeal joint. Decreased pain on palpation with compression of the distal phalanx. No crepitus on palpation to the fracture or hallux site right foot. Skin: Ulcer/ Wound - No purulence, erythema, streaking, odor, or infection. There is no exposed bone or tendon or joint. The peripheral skin turgor is normal. There is progressive peripheral epithelialization and central ulcer site granulation formation that appears to be healthy Wound Measurements and Assessment - Nurse 1 - General Ulcer Measurement Start: 04/09/18 15:36 Freq: Status: Active Protocol: Activity Type Activity Date Activity User E-Sign Co-Sign Detail Recorded Client Recorded Date Recorded By Document 04/16/18 15:45 [facility] [id number] 04/16/18 15:52 [facility] 04/16/18 15:45 Wound Center Nurse 1 [Ulcer Assessment] #1- RT GR TOE -Combined with other wound No -Current Size (cm) - Length 1.3 -Current Size (cm) - Width 2.4 -Current Size (cm) - Depth 0.1 -Total Square Cm 3.12 -Epithelialization None Present -Tunneling No -Undermining/Tunneling No -Circular Undermining No -Exudate Amt Small (1-33%) -Exudate Type Serosanguineous -Wound Margin Distinct, Outline Attached -Granulation Amt Small (1-33%) -Granulation Quality Red -Slough/Fibrin Yes -Necrosis Amt Large (67-100%) -Necrotic Tissue Type Adherent Slough -Texture (Yulia-wound Skin Appearance) Scarring -Moisture (Yulia-wound Skin Appearance Dry/Scaly ) -Color (Yulia-wound Skin Appearance) Assessed -Temperature (Yulia-wound Skin No Abnormality Appearance) (Pt Warm) -Tenderness on Palpation (Yulia-wound No Skin Appearance) -Ulcer Cleansing Wound Cleanser -Foul Odor after Cleansing No -Anesthetic Used 5% Lidocaine Gel - Nurse 2 - General Ulcer CM Notes Start: 04/09/18 15:36 Freq: Status: Active Protocol: Activity Type Activity Date Activity User E-Sign Co-Sign Detail Recorded Client Recorded Date Recorded By Document 04/16/18 16:14 [id number] 04/16/18 16:16 04/16/18 16:14 Wound Center Nurse 2 [Procedure/Treatment] -Time 16:15 -Correct Patient Yes -Correct Side, Site, Position Yes -Correct Procedure Yes -Procedure Performed Yes -Type of Procedure Debridement -Clinical Debridement Subcutaneous -Post Debridement Size (cm) - Length 1.3 -Post Debridement Size (cm) - Width 1.3 -Post Debridement Size (cm) - Depth 0.2 -Total Square Cm 1.69 -Wound/Ulcer Outcome Not Healed -Ulcer Cleansing Rinsed/ Irrigated with Saline -Foul Odor after Cleansing No -Bioengineered Tissue Yes -Type of bioengineered Tissue EPIFIX -Expiration Date 12/01/22 -Product Lot Number [id number] -Percent Used 100 -Saline Lot Number [id number] -Bleeding Controlled with Pressure -Treatment Response Procedure Tolerated Well [See Physician Procedure note for Specifics] Pain Scale: 0-10 Numeric [Pain] -Is Patient Pain Free? Yes Musculoskeletal: No Tenderness to Palpation of Joints or Extremities, Muscle Wasting, - - Rectus right hallux Neurological: Sensory exam intact to light touch and pain Psych/Mental Status: Normal Affect, Appropriate Debridement Note Post-Debridement Measurements/Treatment WC - Nurse 2 - General Ulcer CM Notes Start: 04/09/18 15:36 Freq: Status: Active Protocol: Activity Type Activity Date Activity User E-Sign Co-Sign Detail Recorded Client Recorded Date Recorded By Document 04/16/18 16:14 [id number] 04/16/18 16:16 [email or web address] 04/16/18 16:14 Wound Center Nurse 2 #1- RT GR TOE -Time 16:15 -Correct Patient Yes -Correct Side, Site, Position Yes -Correct Procedure Yes -Procedure Performed Yes -Type of Procedure Debridement -Clinical Debridement Subcutaneous -Post Debridement Size (cm) - Length 1.3 -Post Debridement Size (cm) - Width 1.3 -Post Debridement Size (cm) - Depth 0.2 -Total Square Cm 1.69 -Wound/Ulcer Outcome Not Healed -Ulcer Cleansing Rinsed/ Irrigated with Saline -Foul Odor after Cleansing No -Bioengineered Tissue Yes -Type of bioengineered Tissue EPIFIX -Expiration Date 12/01/22 -Product Lot Number [id number] -Percent Used 100 -Saline Lot Number [id number] -Bleeding Controlled with Pressure -Treatment Response Procedure Tolerated Well Pain Scale: 0-10 Numeric Is Patient Pain Free? 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 Right great toe ulcer with muscle layer exposed. History of traumatic laceration. Comminuted distal phalanx fracture with delayed healing. Delayed healing. Malnutrition suspected. Peripheral vascular disease has been ruled out Plan: I reviewed and discussed his case. A subcutaneous excisional debridement was performed as noted in the clinical nursing panel. Verbal consent was obtained for application of advanced wound care product, epi fix. This was applied today according to standard protocol and was secured in place with a wound veil and Steri-Strips. The indications, benefits, risks, anticipated healing course and management were discussed in detail. I answered his questions. He is doing very well so far. A secondary dressing was applied. Patient was instructed that he could change the outer layer dressings if needed over the course of the next week. A noninvasive vascular study was ordered and this was previously reviewed. He appears to have normal ankle-brachial indices and appropriate waveforms suggestin previously with a comminuted distal phalanx displaced fracture with continued gapping evidence of nonhealing. He obtain updated foot x-rays this past week and there is no significant osseous bridging noted. A fibrous union is suspected due to his decreased pain on palpation and with daily activities. Overall the hallux remains in a rectus position and there is no soft tissue emphysema, foreign body, or obvious periosteal reaction or destruction. Follow-up with orthopedics as scheduled tomorrow; walking progression will be considered due to his clinical improvement. His recent laboratory work from February 12, 2018 was reviewed with a white blood cell count of 9.5 and sedimentation rate of 14. His most recent culture was also reviewed with pseudomonas aeruginosa. It appears this is clinically improved with Levaquin use. Additional antibiotics are not recommended at this time. He was advised to follow-up at the wound healing center in 1 week or call sooner if he has any questions or concerns. It is noted this is a Workmen's Compensation case.
[2018-04-23 15:48] VITALS: BP 133/84; PULSE 80; RESP 16; TEMP 37.3
--- NOTE | 2018-04-23 17:44 | PCM.WC.PN ---
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 Current Visit: Yes Code(s): L97.513 - Non-pressure chronic ulcer of other part of right foot with necrosis of muscle (2) Delayed wound healing Status: Chronic Current Visit: Yes Code(s): T14.8XXD - Other injury of unspecified body region, subsequent encounter (3) Laceration of great toe of right foot Status: Chronic Current Visit: Yes Qualifiers: Code(s): S91.111A - Laceration without foreign body of right great toe without damage to nail, initial encounter (4) Displaced fracture of distal phalanx of right great toe with delayed healing Status: Chronic Current Visit: Yes Code(s): S92.421G - Displaced fracture of distal phalanx of right great toe, subsequent encounter for fracture with delayed healing (5) Closed displaced fracture of distal phalanx of lesser toe of right foot Status: Chronic Current Visit: Yes Qualifiers: Code(s): S92.531A - Displaced fracture of distal phalanx of right lesser toe(s), initial encounter for closed fracture Type of Wound Date of Service: 04/23/18 Chief Complaint: Right toe ulcer History of Wound: This 62-year-old male was seen today for nonhealing right great toe ulcer. He has a hallux fracture. He has completed a course of antibiotics. He denies fever, chill, nausea, vomiting. This is a Workmen's Compensation case. He denies redness or odor from the wound bed. He continues to wear his specialized fracture shoe. His pain to his fracture site has decreased. He is kept his epi fix in place as advised. Progress of Wound: Improving - Physical Exam Vital Signs Temp Pulse Resp BP 99.1 F 80 16 133/84 H 04/23/18 15:48 04/23/18 15:48 04/23/18 15:48 04/23/18 15:48 General: Alert, Oriented x3, Cooperative Extremities: No cyanosis, Capillary Refill Less than 3 Seconds, No Calf Tenderness, Diminished Peripheral Pulses, Edema, - - decreased pain to compress fracture site Skin: Ulcer/ Wound - no purulence ,deep tissue exposure, erythema, streaking, necrosis or infection signs. peripheral epithelialization continues Wound Measurements and Assessment WC - Nurse 1 - General Ulcer Measurement Start: 04/09/18 15:36 Freq: Status: Active Protocol: Activity Type Activity Date Activity User E-Sign Co-Sign Detail Recorded Client Recorded Date Recorded By Document 04/23/18 15:48 [id number] 04/23/18 15:50 04/23/18 15:48 Wound Center Nurse 1 [Ulcer Assessment] #1- RT GR TOE -Combined with other wound No -Current Size (cm) - Length 1.5 -Current Size (cm) - Width 0.8 -Current Size (cm) - Depth 0.1 -Total Square Cm 1.20 -Photo Taken No -Epithelialization None Present -Tunneling No -Undermining/Tunneling No -Circular Undermining No -Exudate Amt Medium (34-66%) -Exudate Type Serosanguineous -Wound Margin Distinct, Outline Attached -Granulation Amt Medium (34-66%) -Granulation Quality [place] Red -Slough/Fibrin Yes -Necrosis Amt None Present (0 %) -Necrotic Tissue Type Adherent Slough -Structure Exposed None/Limited to Skin Breakdown -Texture (Yulia-wound Skin Appearance) Scarring -Moisture (Yulia-wound Skin Appearance No Abnormality ) Assessed -Color (Yulia-wound Skin Appearance) No Abnormality Assessed -Temperature (Yulia-wound Skin No Abnormality Appearance) (Pt Warm) -Tenderness on Palpation (Yulia-wound No Skin Appearance) -Ulcer Cleansing Rinsed/ Irrigated with Saline -Foul Odor after Cleansing No -Anesthetic Used 4% Lidocaine Solution [Edema Assessment] -Lower Limb Edema Present NA WC - Nurse 2 - General Ulcer CM Notes Start: 04/09/18 15:36 Freq: Status: Active Protocol: Activity Type Activity Date Activity User E-Sign Co-Sign Detail Recorded Client Recorded Date Recorded By Document 04/23/18 16:25 [id number] 04/23/18 16:27 04/23/18 16:25 Wound Center Nurse 2 [Procedure/Treatment] #1- RT GR TOE -Time 16:25 -Correct Patient Yes -Correct Side, Site, Position Yes -Correct Procedure Yes -Procedure Performed Yes -Type of Procedure Debridement -Clinical Debridement Subcutaneous -Post Debridement Size (cm) - Length 1 -Post Debridement Size (cm) - Width 1 -Post Debridement Size (cm) - Depth 0.1 -Total Square Cm 1 -Wound/Ulcer Outcome Not Healed -Ulcer Cleansing Rinsed/ Irrigated with Saline -Foul Odor after Cleansing No -Bioengineered Tissue Yes -Type of bioengineered Tissue EPIFIX -Expiration Date 11/01/22 -Product Lot Number [id number] -Percent Used 100 -Saline Lot Number [id number] -Bleeding Controlled with Pressure -Treatment Response Procedure Tolerated Well [See Physician Procedure note for Specifics] Pain Scale: 0-10 Numeric [Pain] -Is Patient Pain Free? Yes Musculoskeletal: No Tenderness to Palpation of Joints or Extremities, No Muscle Wasting Neurological: Sensory exam intact to light touch and pain Psych/Mental Status: Normal Affect, Appropriate Debridement Note Post-Debridement Measurements/Treatment WC - Nurse 2 - General Ulcer CM Notes Start: 04/09/18 15:36 Freq: Status: Active Protocol: Activity Type Activity Date Activity User E-Sign Co-Sign Detail Recorded Client Recorded Date Recorded By Document 04/16/18 16:14 [id number] 04/16/18 16:16 Document 04/23/18 16:25 [id number] 04/23/18 16:27 04/16/18 04/23/18 16:14 16:25 Wound Center Nurse 2 #1- RT GR TOE -Time 16:15 16:25 -Correct Patient Yes Yes -Correct Side, Site, Position Yes Yes -Correct Procedure Yes Yes -Procedure Performed Yes Yes -Type of Procedure Debridement Debridement -Clinical Debridement Subcutaneous Subcutaneous -Post Debridement Size (cm) - Length 1.3 1 -Post Debridement Size (cm) - Width 1.3 1 -Post Debridement Size (cm) - Depth 0.2 0.1 -Total Square Cm 1.69 1 -Wound/Ulcer Outcome Not Healed Not Healed -Ulcer Cleansing Rinsed/ Rinsed/ Irrigated with Irrigated with Saline Saline -Foul Odor after Cleansing No No -Bioengineered Tissue Yes Yes -Type of bioengineered Tissue EPIFIX EPIFIX -Expiration Date 12/01/22 11/01/22 -Product Lot Number [id number] -Percent Used 100 100 -Saline Lot Number [id number] -Bleeding Controlled with Pressure Pressure -Treatment Response Procedure Procedure Tolerated Well Tolerated Well Pain Scale: 0-10 Numeric Is Patient Pain Free? 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 Right great toe ulcer with muscle layer exposed. History of traumatic laceration. Comminuted distal phalanx fracture with delayed healing. Delayed healing. Malnutrition suspected. Peripheral vascular disease has been ruled out Plan: I reviewed and discussed his case. A subcutaneous excisional debridement was performed as noted in the clinical nursing panel. Verbal consent was obtained for application of advanced wound care product, epi fix. This was applied today according to standard protocol and was secured in place with a wound veil and Steri-Strips. The indications, benefits, risks, anticipated healing course and management were discussed in detail. I answered his questions. He is doing very well so far. A secondary dressing was applied. Patient was instructed that he could change the outer layer dressings if needed over the course of the next week. A noninvasive vascular study was ordered and this was previously reviewed. He appears to have normal ankle-brachial indices and appropriate waveforms suggestin previously with a comminuted distal phalanx displaced fracture with continued gapping evidence of nonhealing. He obtain updated foot x-rays this past week and there is no significant osseous bridging noted. A fibrous union is suspected due to his decreased pain on palpation and with daily activities. Overall the hallux remains in a rectus position and there is no soft tissue emphysema, foreign body, or obvious periosteal reaction or destruction. Ok to d/c crutch use and weight bear in surgical shoe; to avoid hallux motion to reduce ulcer site tension. His recent laboratory work from February 12, 2018 was reviewed with a white blood cell count of 9.5 and sedimentation rate of 14. His most recent culture was also reviewed with pseudomonas aeruginosa. It appears this is clinically improved with Levaquin use. Additional antibiotics are not recommended at this time. He was advised to follow-up at the wound healing center in 1 week or call sooner if he has any questions or concerns. It is noted this is a Workmen's Compensation case.
[2018-04-30 11:16] VITALS: BP 149/93; PULSE 80; RESP 18; TEMP 36
--- NOTE | 2018-04-30 11:50 | PN.PCM_ITS ---
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 Current Visit: Yes Code(s): L97.513 - Non-pressure chronic ulcer of other part of right foot with necrosis of muscle (2) Laceration of great toe of right foot Status: Chronic Current Visit: Yes Qualifiers: Encounter type: subsequent encounter Code(s): S91.111A - Laceration without foreign body of right great toe without damage to nail, initial encounter (3) Displaced fracture of distal phalanx of right great toe with delayed healing Status: Chronic Current Visit: Yes Code(s): S92.421G - Displaced fracture of distal phalanx of right great toe, subsequent encounter for fracture with delayed healing (4) Closed displaced fracture of distal phalanx of lesser toe of right foot Status: Chronic Current Visit: Yes Qualifiers: Encounter type: subsequent encounter Fracture healing: with routine healing Qualified Code(s): S92.531D - Displaced fracture of distal phalanx of right lesser toe(s), subsequent encounter for fracture with routine healing Code(s): S92.531A - Displaced fracture of distal phalanx of right lesser toe(s), initial encounter for closed fracture Type of Wound Date of Service: 04/30/18 Chief Complaint: Right toe ulcer History of Wound: This 62-year-old male was seen today for nonhealing right great toe ulcer. He has a hallux fracture. He has completed a course of antibiotics. He denies fever, chill, nausea, vomiting. He has progressed his walking and driving activity as permitted by orthopedics this past week. This is a Workmen's Compensation case. He denies redness or odor from the wound bed. He continues to wear his specialized fracture shoe. His pain to his fracture site has decreased. He is kept his epi fix in place as advised. Progress of Wound: Improving - Physical Exam Vital Signs Temp Pulse Resp BP 96.8 F L 80 18 149/93 H 04/30/18 11:16 04/30/18 11:16 04/30/18 11:16 04/30/18 11:16 General: Alert, Oriented x3, Cooperative Extremities: No cyanosis, No edema, Capillary Refill Less than 3 Seconds, No Calf Tenderness - Negative Genaro and Dorsey sign left, Peripheral Pulses Normal, - - No pain with fracture wound site manipulation Skin: Ulcer/ Wound - No purulence, erythema, streaking, odor, or infection or deep tissue exposed or necrosis or eschar left foot Wound Measurements and Assessment WC - Nurse 1 - General Ulcer Measurement Start: 04/09/18 15:36 Freq: Status: Active Protocol: Activity Type Activity Date Activity User E-Sign Co-Sign Detail Recorded Client Recorded Date Recorded By Document 04/30/18 11:16 MARCELINO [id number] 04/30/18 11:23 MARCELINO 04/30/18 11:16 Wound Center Nurse 1 [Ulcer Assessment] #1- RT GR TOE -Current Size (cm) - Length 0.5 -Current Size (cm) - Width 1 -Current Size (cm) - Depth 0.1 -Total Square Cm 0.5 -Photo Taken No -Exudate Amt None Present (0 %) -Wound Margin Thickened -Granulation Amt None Present (0 %) -Necrosis Amt Large (67-100%) -Necrotic Tissue Type Adherent Slough -Structure Exposed N/A -Texture (Yulia-wound Skin Appearance) Scarring -Moisture (Yulia-wound Skin Appearance No Abnormality ) -Color (Yulia-wound Skin Appearance) No Abnormality -Temperature (Yulia-wound Skin No Abnormality Appearance) (Pt Warm) -Tenderness on Palpation (Yulia-wound No Skin Appearance) -Ulcer Cleansing Wound Cleanser -Foul Odor after Cleansing No -Anesthetic Used 5% Lidocaine Gel - Nurse 2 - General Ulcer CM Notes Start: 04/09/18 15:36 Freq: Status: Active Protocol: Activity Type Activity Date Activity User E-Sign Co-Sign Detail Recorded Client Recorded Date Recorded By Document 04/30/18 11:41 [id number] 04/30/18 11:43 04/30/18 11:41 Wound Center Nurse 2 [Procedure/Treatment] -Time 11:41 -Correct Patient Yes -Correct Side, Site, Position Yes -Correct Procedure Yes -Procedure Performed Yes -Type of Procedure Debridement -Clinical Debridement Subcutaneous -Post Debridement Size (cm) - Length 0.4 -Post Debridement Size (cm) - Width 0.3 -Post Debridement Size (cm) - Depth 0.1 -Total Square Cm 0.12 -Wound/Ulcer Outcome Not Healed -Ulcer Cleansing Rinsed/ Irrigated with Saline -Foul Odor after Cleansing No -Bioengineered Tissue Yes -Type of bioengineered Tissue EPIFIX -Expiration Date 08/01/23 -Product Lot Number [id number] -Percent Used 100 -Saline Lot Number [id number] -Bleeding Controlled with Pressure -Treatment Response Procedure Tolerated Well [See Physician Procedure note for Specifics] Pain Scale: 0-10 Numeric [Pain] -Is Patient Pain Free? Yes Musculoskeletal: No Tenderness to Palpation of Joints or Extremities, No Muscle Wasting Neurological: Sensory exam intact to light touch and pain Psych/Mental Status: Normal Affect, Appropriate Debridement Note Post-Debridement Measurements/Treatment WC - Nurse 2 - General Ulcer CM Notes Start: 04/09/18 15:36 Freq: Status: Active Protocol: Activity Type Activity Date Activity User E-Sign Co-Sign Detail Recorded Client Recorded Date Recorded By Document 04/16/18 16:14 [id number] 04/16/18 16:16 Document 04/23/18 16:25 [id number] 04/23/18 16:27 Document 04/30/18 11:41 [id number] 04/30/18 11:43 04/16/18 04/23/18 04/30/18 16:14 16:25 11:41 Wound Center Nurse 2 #1- RT GR TOE -Time 16:15 16:25 11:41 -Correct Patient Yes Yes Yes -Correct Side, Site, Position Yes Yes Yes -Correct Procedure Yes Yes Yes -Procedure Performed Yes Yes Yes -Type of Procedure Debridement Debridement Debridement -Clinical Debridement Subcutaneous Subcutaneous Subcutaneous -Post Debridement Size (cm) - Length 1.3 1 0.4 -Post Debridement Size (cm) - Width 1.3 1 0.3 -Post Debridement Size (cm) - Depth 0.2 0.1 0.1 -Total Square Cm 1.69 1 0.12 -Wound/Ulcer Outcome Not Healed Not Healed Not Healed -Ulcer Cleansing Rinsed/ Rinsed/ Rinsed/ Irrigated with Irrigated with Irrigated with Saline Saline Saline -Foul Odor after Cleansing No No No -Bioengineered Tissue Yes Yes Yes -Type of bioengineered Tissue EPIFIX EPIFIX EPIFIX -Expiration Date 12/01/22 11/01/22 01/01/23 -Product Lot Number [id number] -Percent Used 100 100 100 -Saline Lot Number [id number] -Bleeding Controlled with Pressure Pressure Pressure -Treatment Response Procedure Procedure Procedure Tolerated Well Tolerated Well Tolerated Well Pain Scale: 0-10 Numeric Is Patient Pain Free? 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 Right great toe ulcer with muscle layer exposed. History of traumatic laceration. Comminuted distal phalanx fracture with delayed healing. Malnutrition suspected Plan: I reviewed and discussed his case. A subcutaneous excisional debridement was performed as noted in the clinical nursing panel. Verbal consent was obtained for application of advanced wound care product, epi fix. This was applied today according to standard protocol and was secured in place with a wound veil and Steri-Strips. The indications, benefits, risks, anticipated healing course and management were discussed in detail. I answered his questions. He is doing very well so far. A secondary dressing was applied. Patient was instructed that he could change the outer layer dressings if needed over the course of the next week. A noninvasive vascular study was ordered and this was previously reviewed. He appears to have normal ankle-brachial indices and appropriate waveforms suggestin previously with a comminuted distal phalanx displaced fracture with continued gapping evidence of nonhealing. He obtain updated foot x-rays this past week and there is no significant osseous bridging noted. A fibrous union is suspected due to his decreased pain on palpation and with daily activities. Overall the hallux remains in a rectus position and there is no soft tissue emphysema, foreign body, or obvious periosteal reaction or destruction. Ok to d/c crutch use and weight bear in surgical shoe; to avoid hallux motion to reduce ulcer site tension. Okay to drive as tolerated. His recent laboratory work from February 12, 2018 was reviewed with a white blood cell count of 9.5 and sedimentation rate of 14. His most recent culture was also reviewed with pseudomonas aeruginosa. It appears this is clinically improved with Levaquin use. Additional antibiotics are not recommended at this time. He was advised to follow-up at the wound healing center in 1 week or call sooner if he has any questions or concerns. It is noted this is a Wor kmen's Compensation case.
== END 2018-05-02 23:59 ==
LOC: WC 08:30
PROVIDERS: Family Provider Internal Medicine; PCP Internal Medicine; Referring Provider Podiatrist; Visit Provider Podiatrist
DX: L97.512 Non-pressure chronic ulcer of other part of right foot with fat layer exposed (principal); S92.421G Displaced fracture of distal phalanx of right great toe, subsequent encounter for fracture with delayed healing; X58.XXXD Exposure to other specified factors, subsequent encounter
CPT/HCPCS: 15275; Q4131

== ENCOUNTER → 2018-05-07 06:35 | Outpatient (CLI) | payer BC, SELFPAY ==
[2018-05-07 08:03] LABS: PSA,Total - Annual Screen 0.02 ng/mL (0.00-4.00)
== END ==
PROVIDERS: Family Provider Internal Medicine; PCP Internal Medicine; Referring Provider Nurse Practitioner Adult Health; Visit Provider Nurse Practitioner Adult Health
DX: Z12.5 Encounter for screening for malignant neoplasm of prostate (principal)
CPT/HCPCS: 36415; 84153; G0103

== ENCOUNTER 2018-05-14 15:45 | Outpatient (RCR) | payer OTHER, BC, SELFPAY ==
[2018-05-03 01:17] VITALS: BP 149/93; PULSE 80; RESP 18; TEMP 36
[2018-05-07 15:36] VITALS: BP 146/87; PULSE 74; RESP 20; TEMP 36.4; BMI 25.3
--- NOTE | 2018-05-07 16:56 | PCM.WC.PN ---
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 Code(s): L97.513 - Non-pressure chronic ulcer of other part of right foot with necrosis of muscle (2) Laceration of great toe of right foot Status: Chronic Code(s): S91.111A - Laceration without foreign body of right great toe without damage to nail, initial encounter (3) Displaced fracture of distal phalanx of right great toe with delayed healing Status: Chronic Code(s): S92.421G - Displaced fracture of distal phalanx of right great toe, subsequent encounter for fracture with delayed healing Type of Wound Date of Service: 05/07/18 Chief Complaint: Right toe ulcer History of Wound: This 62-year-old male was seen today for nonhealing right great toe ulcer. He has a hallux fracture. He has completed a course of antibiotics. He denies fever, chill, nausea, vomiting. He has progressed his walking and driving activity as permitted by orthopedics this past week. This is a Workmen's Compensation case. He denies redness or odor from the wound bed. He continues to wear his specialized fracture shoe. His pain to his fracture site has decreased. He is kept his epi fix in place as advised. Progress of Wound: Improving - Physical Exam Vital Signs Temp Pulse Resp BP 97.5 F L 74 20 H 146/87 H 05/07/18 15:36 05/07/18 15:36 05/07/18 15:36 05/07/18 15:36 General: Alert, Oriented x3, Cooperative Extremities: No cyanosis, No edema, Capillary Refill Less than 3 Seconds, No Calf Tenderness - Negative Genaro and Dorsey sign, Diminished Peripheral Pulses, Tenderness - Decreased pain with fracture site palpation Skin: Ulcer/ Wound - No purulence, erythema hamstring, odor, or infection. There is a very small sub-hemorrhagic and subcutaneous stasis ulcer to the dorsal hallux noted and this has significant reduction in size. There is no necrotic tissue noted. The peripheral skin is atrophic Wound Measurements and Assessment WC - Nurse 1 - General Ulcer Measurement Start: 05/07/18 15:35 Freq: Status: Active Protocol: Activity Type Activity Date Activity User E-Sign Co-Sign Detail Recorded Client Recorded Date Recorded By Document 05/07/18 15:36 DL [id number] 05/07/18 15:42 DL 05/07/18 15:36 Wound Center Nurse 1 [Ulcer Assessment] #1- RT GR TOE -Current Size (cm) - Length 0.1 -Current Size (cm) - Width 0.1 -Current Size (cm) - Depth 0.1 -Total Square Cm 0.01 -Photo Taken No -Exudate Amt None Present (0 %) -Wound Margin Thickened -Granulation Amt Large (67-100%) -Granulation Quality Pale -Necrosis Amt Small (1-33%) -Necrotic Tissue Type Adherent Slough -Structure Exposed N/A -Texture (Yulia-wound Skin Appearance) Scarring -Moisture (Yulia-wound Skin Appearance Dry/Scaly ) -Color (Yulia-wound Skin Appearance) No Abnormality -Temperature (Yulia-wound Skin No Abnormality Appearance) (Pt Warm) -Tenderness on Palpation (Yulia-wound No Skin Appearance) -Ulcer Cleansing Rinsed/ Irrigated with Saline -Foul Odor after Cleansing No -Anesthetic Used 4% Lidocaine Solution WC - Nurse 2 - General Ulcer CM Notes Start: 05/07/18 15:35 Freq: Status: Active Protocol: Activity Type Activity Date Activity User E-Sign Co-Sign Detail Recorded Client Recorded Date Recorded By Document 05/07/18 16:23 [id number] 05/07/18 16:26 JESICA 05/07/18 16:23 Wound Center Nurse 2 [Procedure/Treatment] -Time 16:23 -Correct Patient Yes -Correct Side, Site, Position Yes -Correct Procedure Yes -Procedure Performed Yes -Type of Procedure Debridement -Clinical Debridement Subcutaneous -Post Debridement Size (cm) - Length 0.2 -Post Debridement Size (cm) - Width 0.2 -Post Debridement Size (cm) - Depth 0.1 -Total Square Cm 0.04 -Wound/Ulcer Outcome Not Healed -Ulcer Cleansing Rinsed/ Irrigated with Saline -Foul Odor after Cleansing No -Bioengineered Tissue No -Bleeding Controlled with Pressure -Offloading No -Treatment Response Procedure Tolerated Well [See Physician Procedure note for Specifics] Pain Scale: 0-10 Numeric [Pain] -Is Patient Pain Free? Yes Musculoskeletal: No Tenderness to Palpation of Joints or Extremities, Muscle Wasting Neurological: Sensory exam intact to light touch and pain Psych/Mental Status: Normal Affect, Appropriate Debridement Note Post-Debridement Measurements/Treatment WC - Nurse 2 - General Ulcer CM Notes Start: 05/07/18 15:35 Freq: Status: Active Protocol: Activity Type Activity Date Activity User E-Sign Co-Sign Detail Recorded Client Recorded Date Recorded By Document 05/07/18 16:23 JESICA [id number] 05/07/18 16:26 JESICA 05/07/18 16:23 Wound Center Nurse 2 #1- RT GR TOE -Time 16:23 -Correct Patient Yes -Correct Side, Site, Position Yes -Correct Procedure Yes -Procedure Performed Yes -Type of Procedure Debridement -Clinical Debridement Subcutaneous -Post Debridement Size (cm) - Length 0.2 -Post Debridement Size (cm) - Width 0.2 -Post Debridement Size (cm) - Depth 0.1 -Total Square Cm 0.04 -Wound/Ulcer Outcome Not Healed -Ulcer Cleansing Rinsed/ Irrigated with Saline -Foul Odor after Cleansing No -Bioengineered Tissue No -Bleeding Controlled with Pressure -Offloading No -Treatment Response Procedure Tolerated Well Pain Scale: 0-10 Numeric Is Patient Pain Free? Yes Wound debrided: dorsal hallux Laterality: Left Type of Debridement: Excisional debridement Anesthesia Used: 5% Lidocaine Gel Depth: in the subcutaneous layer Percentage of wound debrided: 100 Instrument Used: #15 blade Tissue Removed: devitalized subcutaneous, biofilm, slough, fibrous Severity: Fat Layer Exposed Amount of bleeding with debridement: Mild Bleeding Controlled with: Pressure Patient tolerated procedure well Assessment/Plan Assessment: Cellulitis right hallux resolved. Right great toe ulcer with muscle layer exposed. History of traumatic laceration. Comminuted distal phalanx fracture with delayed healing Plan: I reviewed and discussed his case. A subcutaneous excisional debridement was performed as noted in the clinical nursing panel. Adaptic was applied and he was advised to change this daily. His improvement is noted. He was reassured no signs of infection are appreciated at this time. He obtain updated foot x-rays and there is no significant osseous bridging noted. A fibrous union is suspected due to his decreased pain on palpation and with daily activities. Overall the hallux remains in a rectus position and there is no soft tissue emphysema, foreign body, or obvious periosteal reaction or destruction. Ok to weight bear in surgical shoe; to avoid hallux motion to reduce ulcer site tension. Okay to drive as tolerated. His recent laboratory work from February 12, 2018 was reviewed with a white blood cell count of 9.5 and sedimentation rate of 14. His most recent culture was also reviewed with pseudomonas aeruginosa. It appears this is clinically improved with Levaquin use. Additional antibiotics are not recommended at this time. He was advised to follow-up at the wound healing center in 1 week or call sooner if he has any questions or concerns. It is noted this is a Workmen's Compensation case.
[2018-05-14 15:31] VITALS: BP 142/87; PULSE 105; RESP 16; TEMP 36.7; BMI 25.3
--- NOTE | 2018-05-14 18:11 | PCM.WC.PN ---
(1) Ulcer of right foot with necrosis of muscle Status: Resolved Current Visit: Yes Code(s): L97.513 - Non-pressure chronic ulcer of other part of right foot with necrosis of muscle (2) Laceration of great toe of right foot Status: Resolved Current Visit: Yes Code(s): S91.111A - Laceration without foreign body of right great toe without damage to nail, initial encounter (3) Displaced fracture of distal phalanx of right great toe with delayed healing Status: Chronic Current Visit: Yes Code(s): S92.421G - Displaced fracture of distal phalanx of right great toe, subsequent encounter for fracture with delayed healing Type of Wound Date of Service: 05/14/18 Chief Complaint: Right toe ulcer History of Wound: This 62-year-old male was seen today for nonhealing right great toe ulcer. He has a hallux fracture. He has completed a course of antibiotics. He denies fever, chill, nausea, vomiting. He has progressed his walking and driving activity as permitted by orthopedics a couple of weeks ago. This is a Workmen's Compensation case. He denies redness, drainage, or odor from the wound bed. He continues to wear his specialized surgical shoe. His pain to his fracture site has resolved. He performed dressing changes last week as advised. Progress of Wound: Healed - Physical Exam Vital Signs Temp Pulse Resp BP 98.0 F 105 H 16 142/87 H 05/14/18 15:31 05/14/18 15:31 05/14/18 15:31 05/14/18 15:31 General: Alert, Oriented x3, Cooperative Extremities: No cyanosis, Capillary Refill Less than 3 Seconds, No Calf Tenderness - Negative Genaro and Dorsey bilateral, Diminished Peripheral Pulses, Edema - Resolved left foot, Tenderness - No pain on palpation to recently healed ulcer site or with palpation to the fracture site of the hallux Skin: Ulcer/ Wound - No purulence, erythema, streaking, odor, or infection. Full epithelialization is noted in the ulcer site is healed. There is no interdigital maceration. There is no visualized nail regrowth at this time Wound Measurements and Assessment WC - Nurse 1 - General Ulcer Measurement Start: 05/07/18 15:35 Freq: Status: Active Protocol: Activity Type Activity Date Activity User E-Sign Co-Sign Detail Recorded Client Recorded Date Recorded By Document 05/14/18 15:31 [facility] [id number] 05/14/18 15:36 [facility] 05/14/18 15:31 Wound Center Nurse 1 [Ulcer Assessment] #1- RT GR TOE -Combined with other wound No -Current Size (cm) - Length 0.1 -Current Size (cm) - Width 0.1 -Current Size (cm) - Depth 0.1 -Total Square Cm 0.01 -Photo Taken No -Epithelialization Small 1-33% -Tunneling No -Undermining/Tunneling No -Circular Undermining No -Classification - Thickness Full Thickness without Exposed Support Structure -Exudate Amt None Present (0 %) -Wound Margin Flat & Intact -Granulation Amt None Present (0 %) -Granulation Quality N/A -Slough/Fibrin No -Necrosis Amt None Present (0 %) -Structure Exposed N/A -Texture (Yulia-wound Skin Appearance) No Abnormality Assessed -Moisture (Yulia-wound Skin Appearance No Abnormality ) Assessed -Color (Yulia-wound Skin Appearance) No Abnormality Assessed -Temperature (Yulia-wound Skin No Abnormality Appearance) (Pt Warm) -Tenderness on Palpation (Yulia-wound No Skin Appearance) -Ulcer Cleansing Rinsed/ Irrigated with Saline -Foul Odor after Cleansing No -Anesthetic Used 4% Lidocaine Solution [Edema Assessment] -Lower Limb Edema Present No WC - Nurse 2 - General Ulcer CM Notes Start: 05/07/18 15:35 Freq: Status: Active Protocol: Activity Type Activity Date Activity User E-Sign Co-Sign Detail Recorded Client Recorded Date Recorded By Document 05/14/18 16:01 [id number] 05/14/18 16:03 05/14/18 16:01 Wound Center Nurse 2 [Procedure/Treatment] #1- RT GR TOE -Correct Patient No -Correct Side, Site, Position No -Correct Procedure No -Procedure Performed No -Post Debridement Size (cm) - Length 0 -Post Debridement Size (cm) - Width 0 -Post Debridement Size (cm) - Depth 0 -Total Square Cm 0 -Wound/Ulcer Outcome Healed- Epithelialized [See Physician Procedure note for Specifics] Pain Scale: 0-10 Numeric [Pain] -Is Patient Pain Free? Yes Musculoskeletal: No Tenderness to Palpation of Joints or Extremities, Muscle Wasting Neurological: Sensory exam intact to light touch and pain Psych/Mental Status: Normal Affect, Appropriate Debridement Note Post-Debridement Measurements/Treatment WC - Nurse 2 - General Ulcer CM Notes Start: 05/07/18 15:35 Freq: Status: Active Protocol: Activity Type Activity Date Activity User E-Sign Co-Sign Detail Recorded Client Recorded Date Recorded By Document 05/07/18 16:23 [id number] 05/07/18 16:26 Document 05/14/18 16:01 [id number] 05/14/18 16:03 05/07/18 05/14/18 16:23 16:01 Wound Center Nurse 2 #1- RT GR TOE -Time 16:23 -Correct Patient Yes No -Correct Side, Site, Position Yes No -Correct Procedure Yes No -Procedure Performed Yes No -Type of Procedure Debridement -Clinical Debridement Subcutaneous -Post Debridement Size (cm) - Length 0.2 0 -Post Debridement Size (cm) - Width 0.2 0 -Post Debridement Size (cm) - Depth 0.1 0 -Total Square Cm 0.04 0 -Wound/Ulcer Outcome Not Healed Healed- Epithelialized -Ulcer Cleansing Rinsed/ Irrigated with Saline -Foul Odor after Cleansing No -Bioengineered Tissue No -Bleeding Controlled with Pressure -Offloading No -Treatment Response Procedure Tolerated Well Pain Scale: 0-10 Numeric Is Patient Pain Free? Yes Yes No debridement was completed today - The ulcer site is healed Assessment/Plan Active Problems (Last Updated 01/13/18 @ 13:24 by Ronald Nguyen) Displaced fracture of distal phalanx of right great toe with delayed healing (Chronic) Assessment: Cellulitis right hallux resolved. Right great toe ulcer healed. History of traumatic laceration. Comminuted distal phalanx fracture with delayed healing Plan: I reviewed and discussed his case. Debridement was not performed today because the ulcer site has healed. He was advised to discontinue all dressing care. He was also advised to progress to a stiff work boot at this time as tolerated over the next week. If this is tolerated, a work note to return to full duties will be provided. I recommend he confirm this goes well prior to resuming any exercise walking program. He was advised to be gentle to the recently healed ulcer site and to avoid hot tubs or aggressive cleansing while the skin is remodeling. He obtain updated foot x-rays and there is no significant osseous bridging noted. A fibrous union is suspected due to his resolution of pain on palpation and with daily activities. Overall the hallux remains in a rectus position and there is no soft tissue emphysema, foreign body, or obvious periosteal reaction or destruction. Clinically he is doing very well. To follow-up with orthopedics as advised. Otherwise I would recommend continuing to progress back to his activity. I offered him a follow-up at the [facility] Center in 3 weeks. I answered all his questions. He will be discharged from the wound healing center at this time.
--- NOTE | 2018-05-14 18:15 | PN.PCM_ITS ---
(1) Ulcer of right foot with necrosis of muscle Status: Resolved Current Visit: Yes Code(s): L97.513 - Non-pressure chronic ulcer of other part of right foot with necrosis of muscle (2) Laceration of great toe of right foot Status: Resolved Current Visit: Yes Code(s): S91.111A - Laceration without foreign body of right great toe without damage to nail, initial encounter (3) Displaced fracture of distal phalanx of right great toe with delayed healing Status: Chronic Current Visit: Yes Code(s): S92.421G - Displaced fracture of distal phalanx of right great toe, subsequent encounter for fracture with delayed healing Type of Wound Date of Service: 05/14/18 Chief Complaint: Right toe ulcer History of Wound: This 62-year-old male was seen today for nonhealing right great toe ulcer. He has a hallux fracture. He has completed a course of antibiotics. He denies fever, chill, nausea, vomiting. He has progressed his walking and driving activity as permitted by orthopedics a couple of weeks ago. This is a Workmen's Compensation case. He denies redness, drainage, or odor from the wound bed. He continues to wear his specialized surgical shoe. His pain to his fracture site has resolved. He performed dressing changes last week as advised. Progress of Wound: Healed - Physical Exam Vital Signs Temp Pulse Resp BP 98.0 F 105 H 16 142/87 H 05/14/18 15:31 05/14/18 15:31 05/14/18 15:31 05/14/18 15:31 General: Alert, Oriented x3, Cooperative Extremities: No cyanosis, Capillary Refill Less than 3 Seconds, No Calf Tenderness - Negative Genaro and Dorsey bilateral, Diminished Peripheral Pulses, Edema - Resolved left foot, Tenderness - No pain on palpation to recently healed ulcer site or with palpation to the fracture site of the hallux Skin: Ulcer/ Wound - No purulence, erythema, streaking, odor, or infection. Full epithelialization is noted in the ulcer site is healed. There is no interdigital maceration. There is no visualized nail regrowth at this time Wound Measurements and Assessment WC - Nurse 1 - General Ulcer Measurement Start: 05/07/18 15:35 Freq: Status: Active Protocol: Activity Type Activity Date Activity User E-Sign Co-Sign Detail Recorded Client Recorded Date Recorded By Document 05/14/18 15:31 [facility] [id number] 05/14/18 15:36 [facility] 05/14/18 15:31 Wound Center Nurse 1 [Ulcer Assessment] #1- RT GR TOE -Combined with other wound No -Current Size (cm) - Length 0.1 -Current Size (cm) - Width 0.1 -Current Size (cm) - Depth 0.1 -Total Square Cm 0.01 -Photo Taken No -Epithelialization Small 1-33% -Tunneling No -Undermining/Tunneling No -Circular Undermining No -Classification - Thickness Full Thickness without Exposed Support Structure -Exudate Amt None Present (0 %) -Wound Margin Flat & Intact -Granulation Amt None Present (0 %) -Granulation Quality N/A -Slough/Fibrin No -Necrosis Amt None Present (0 %) -Structure Exposed N/A -Texture (Yulia-wound Skin Appearance) No Abnormality Assessed -Moisture (Yulia-wound Skin Appearance No Abnormality ) Assessed -Color (Yulia-wound Skin Appearance) No Abnormality Assessed -Temperature (Yulia-wound Skin No Abnormality Appearance) (Pt Warm) -Tenderness on Palpation (Yulia-wound No Skin Appearance) -Ulcer Cleansing Rinsed/ Irrigated with Saline -Foul Odor after Cleansing No -Anesthetic Used 4% Lidocaine Solution [Edema Assessment] -Lower Limb Edema Present No WC - Nurse 2 - General Ulcer CM Notes Start: 05/07/18 15:35 Freq: Status: Active Protocol: Activity Type Activity Date Activity User E-Sign Co-Sign Detail Recorded Client Recorded Date Recorded By Document 05/14/18 16:01 [id number] 05/14/18 16:03 05/14/18 16:01 Wound Center Nurse 2 [Procedure/Treatment] #1- RT GR TOE -Correct Patient No -Correct Side, Site, Position No -Correct Procedure No -Procedure Performed No -Post Debridement Size (cm) - Length 0 -Post Debridement Size (cm) - Width 0 -Post Debridement Size (cm) - Depth 0 -Total Square Cm 0 -Wound/Ulcer Outcome Healed- Epithelialized [See Physician Procedure note for Specifics] Pain Scale: 0-10 Numeric [Pain] -Is Patient Pain Free? Yes Musculoskeletal: No Tenderness to Palpation of Joints or Extremities, Muscle Wasting Neurological: Sensory exam intact to light touch and pain Psych/Mental Status: Normal Affect, Appropriate Debridement Note Post-Debridement Measurements/Treatment WC - Nurse 2 - General Ulcer CM Notes Start: 05/07/18 15:35 Freq: Status: Active Protocol: Activity Type Activity Date Activity User E-Sign Co-Sign Detail Recorded Client Recorded Date Recorded By Document 05/07/18 16:23 [id number] 05/07/18 16:26 Document 05/14/18 16:01 [id number] 05/14/18 16:03 05/07/18 05/14/18 16:23 16:01 Wound Center Nurse 2 #1- RT GR TOE -Time 16:23 -Correct Patient Yes No -Correct Side, Site, Position Yes No -Correct Procedure Yes No -Procedure Performed Yes No -Type of Procedure Debridement -Clinical Debridement Subcutaneous -Post Debridement Size (cm) - Length 0.2 0 -Post Debridement Size (cm) - Width 0.2 0 -Post Debridement Size (cm) - Depth 0.1 0 -Total Square Cm 0.04 0 -Wound/Ulcer Outcome Not Healed Healed- Epithelialized -Ulcer Cleansing Rinsed/ Irrigated with Saline -Foul Odor after Cleansing No -Bioengineered Tissue No -Bleeding Controlled with Pressure -Offloading No -Treatment Response Procedure Tolerated Well Pain Scale: 0-10 Numeric Is Patient Pain Free? Yes Yes No debridement was completed today - The ulcer site is healed Assessment/Plan Active Problems (Last Updated 01/13/18 @ 13:24 by Ronald Nguyen) Displaced fracture of distal phalanx of right great toe with delayed healing (Chronic) Assessment: Cellulitis right hallux resolved. Right great toe ulcer healed. History of traumatic laceration. Comminuted distal phalanx fracture with delayed healing Plan: I reviewed and discussed his case. Debridement was not performed today because the ulcer site has healed. He was advised to discontinue all dressing care. He was also advised to progress to a stiff work boot at this time as tolerated over the next week. If this is tolerated, a work note to return to full duties will be provided. I recommend he confirm this goes well prior to resuming any exercise walking program. He was advised to be gentle to the recently healed ulcer site and to avoid hot tubs or aggressive cleansing while the skin is remodeling. He obtain updated foot x-rays and there is no significant osseous bridging noted. A fibrous union is suspected due to his resolution of pain on palpation and with daily activities. Overall the hallux remains in a rectus position and there is no soft tissue emphysema, foreign body, or obvious periosteal reaction or destruction. Clinically he is doing very well. To follow-up with orthopedics as advised. Otherwise I would recommend continuing to progress back to his activity. I offered him a follow- up at the [facility] Center in 3 weeks. I answered all his questions. He will be discharged from the wound healing center at this time.
== END 2018-06-02 23:59 ==
LOC: WC 15:45
PROVIDERS: Family Provider Internal Medicine; PCP Internal Medicine; Referring Provider Podiatrist; Visit Provider Podiatrist
DX: L97.512 Non-pressure chronic ulcer of other part of right foot with fat layer exposed (principal); S92.421G Displaced fracture of distal phalanx of right great toe, subsequent encounter for fracture with delayed healing; X58.XXXD Exposure to other specified factors, subsequent encounter
CPT/HCPCS: 11042; 99212; G0463

== ENCOUNTER → 2018-11-11 15:48 | Outpatient (CLI) | payer BC, SELFPAY ==
[2018-06-04 10:14] VITALS: BMI 25.3
--- NOTE | 2018-11-11 15:51 | RAD_ITS ---
STUDY: X-RAY - LEFT KNEE REASON FOR EXAM: Male, 63 years old. Knee pain TECHNIQUE: 4 view(s) of the knee. COMPARISON: None. FINDINGS: Normal visualized distal femur. Normal visualized proximal tibia and fibula. Normal proximal tibiofibular articulation. There is mild degenerative arthrosis of the medial femorotibial compartment. Normal lateral femorotibial compartment. There is mild degenerative arthrosis of the patellofemoral articulation. The soft tissue structures are unremarkable. RAD/Knee 4 or More Views IMPRESSION: Degenerative arthrosis. Electronically Signed: Adonay Parker MD at 16:03 EDT Tel , Service support ,
== END ==
PROVIDERS: Family Provider Internal Medicine; PCP Internal Medicine; Referring Provider Internal Medicine; Visit Provider Internal Medicine
DX: M25.562 Pain in left knee (principal)
CPT/HCPCS: 73564

== ENCOUNTER → 2019-04-21 15:31 | Outpatient (CLI) | payer BC, SELFPAY ==
[2018-06-04 10:14] VITALS: BMI 25.3
--- NOTE | 2019-04-21 15:34 | RAD_ITS ---
STUDY: X-RAY - LEFT SHOULDER REASON FOR EXAM: Male, 63 years old. Pain, decreased range of motion TECHNIQUE: 4 view(s) of the shoulder. COMPARISON: 2013 FINDINGS: There is moderate degenerative arthrosis of the glenohumeral articulation. Normal acromioclavicular joint. Normal acromion. Humeral head shows evidence of previous rotator cuff repair The soft tissue structures are unremarkable. Normal visualized pulmonary apex. RAD/Shoulder min 2 Views IMPRESSION: Moderate glenohumeral arthrosis with evidence of previous rotator cuff repair No demonstrated fracture or suspicious osseous lesion Electronically Signed: Phil Pineda MD at 16:10 EST , Service support ,
== END ==
PROVIDERS: Family Provider Internal Medicine; PCP Internal Medicine; Referring Provider Internal Medicine; Visit Provider Internal Medicine
DX: M25.512 Pain in left shoulder (principal)
CPT/HCPCS: 73030

== ENCOUNTER → 2019-05-11 06:30 | Outpatient (CLI) | payer BC, SELFPAY ==
[2018-06-04 10:14] VITALS: BMI 25.3
[2019-05-11 07:58] LABS: PSA,Total- Diagnostic 0.02 ng/mL (0.0-4.0)
== END ==
PROVIDERS: Family Provider Internal Medicine; PCP Internal Medicine; Referring Provider Nurse Practitioner Adult Health; Visit Provider Nurse Practitioner Adult Health
DX: Z85.46 Personal history of malignant neoplasm of prostate (principal)
CPT/HCPCS: 36415; 84153

== ENCOUNTER 2019-05-11 15:30 | Outpatient (RCR) | payer BC, SELFPAY ==
[2018-06-04 10:14] VITALS: BMI 25.3
--- NOTE | 2019-04-23 16:01 | HP.PTEVAL_ITS ---
Patient's Visit Information QUENTIN RUDD is a 63 year old M referred to Physical Therapy by Maren Membreno DO with a diagnosis of L shoulder pain and supraspinatus pain and h/o RC surgery. Date of Evaluation: 04/23/19 Physical Therapist: JOHNNY Foster - Visit Plan Frequency: 2x /Week Duration: 4 Weeks Plan: 2X/ week for 4 weeks for L shoulder scapular stabilization, RC strength, postural exercises with HEP and modalities if needed. - Subjective Findings: Pt reports that his L shoulder pain started this past summer and it is a constant ache and at times, it turns into pain. When he tore it 5 years ago and had surgery and pain into bicep and down into his arm... He can make his L shoulder crack and pop with IR movement. He got an x-ray and it showed arthritis. They originally took out the bone spurs and wonder if they grew back. The pain comes and goes. If he is holding a vaz of dry wall mud out too long the pain starts to go down the arm mostly to the bicep area. He has a place that when he touches it, itll give him a zing. He is sleeping ok and can sleep on his L shouder. He is R handed. The last couplde of days he has been painting and it hurts more. wants him to do rejuvenation shots but he wants to wait on that. He has an audible popping with IR of his L shoulder and sounds like it is unstable. He has trouble pulling things toward him. - Pain L shoulder pain Pain Intensity (Out of 10): 4 Pain Intensity Range: 10 - Objective R handed: R 150 degrees flexion, 154 degrees abd, IR L4, ER 70 degrees. L 121 degrees flexion, 150 degrees abd, IR L4, ER 42 degrees. +HK for slight tenderness. UE MMT: B shld flex 4/5, R shld flexion 4/5 and L 4-/5, R shld abd 4/5 and L 4-/5, Shld ER R 4/5 and L 4-/5 and Shld IR R 4/5 and L 4-/5. palpation: tender under the acromin and just lateral to the L bicep tendon. Posture: sits wtih rounded shoulder. Audible cracking with IR movements. - Goals Goal 1:: I HEP Goal Time Frame: 4-6 Weeks Goal 2:: Increase L shoulder strength to 4/5 to increase stability of the L shouldrer Goal Time Frame: 4-6 Weeks Goal 3:: Increase scapular strength to help with stability of the L shoulder Goal Time Frame: 4-6 Weeks Goal 4:: Decrease pain to 1/10 with arm outstretched workload Goal Time Frame: 4-6 Weeks - Rehabilitation Potential Rehabilitation Potential: Good - Anticipated Interventions Patient/Client Instruction: Educate patient on: Condition, Plan of Care For the Purpose of:: To decrease pain, To increase ROM, To improve nutrient delivery to tissue, To improve muscle performance and motor function, To improve ability to perform ADL's, To improve performance and independence with ADL's, To improve ability of physical actions for home/community/work/leisure, To decrease soft tissue restriction Therapeutic Exercise to Include: Strength training, Postural training, Passive ROM, Active ROM, Scapular Strength/Stabilization For the Purpose of:: To decrease pain, To increase ROM, To improve nutrient delivery to tissue, To improve muscle performance and motor function, To improve ability to perform ADL's, To increase tolerance to activity/condition/position, To improve performance and independence with ADL's, To decrease soft tissue restriction, To increase flexibility/ROM Cryotherapy (ice pack, ice massage): Yes Thermo therapy (hot pack): Yes Ultrasound (thermal/non thermal): Yes For the Purpose of:: To decrease pain, To increase ROM, To improve nutrient delivery to tissue, To improve muscle performance and motor function, To increase tolerance to activity/condition/position Thank you for the opportunity to evaluate your patient. For Medicare and Medicare HMO plans, please review the plan of care and approve it. It will need to be FAXED BACK to us at [phone] for Medicare purposes. For Medicare only, by signing this I certify the plan of care. Please let me know if there are questions or concerns regarding this plan of care. Physician Signature: Date:
--- NOTE | 2019-05-11 16:23 | HP.PTDCSUM ---
HP - PT D/C Summary It has been my pleasure to treat QUENTIN RUDD under orders from Maren Membreno DO, for the diagnosis of L shoulder pain and supraspinatus pain and h/o RC surgery for a total of 5 visit(s). Discharge Date: 05/11/19 Please see the following information for a summary of their discharge status. - Subjective Subjective: Pt feels the same. He is doing some exercises at home. (wall push ups, rows) - Pain L shoulder pain Pain Intensity (Out of 10): 4 - Overall Improvement % Improvement: 0 - Objective Objective/Function: SHld flex, abd, ER 4/5 and IR 4/5 with slight discomfort. + clicking and crepitus - Goals Goal 1:: I HEP Goal Progress: Progressing Goal 2:: Increase L shoulder strength to 4/5 to increase stability of the L shouldrer Goal Progress: Goal Met Goal 3:: Increase scapular strength to help with stability of the L shoulder Goal Progress: Progressing Goal 4:: Decrease pain to 1/10 with arm outstretched workload Goal Progress: Not Progressing - Plan Plan: DC PT back to physician - D/C Information Discharge Comments: DC PT to physican and possible ORTHO due to past surgery If there are questions or concerns regarding this patient's physical therapy, please feel free to call me at [phone]. Thank you for the referral of this patient. Sincerely, Mag Caldwell, MPT
== END 2019-05-11 19:00 | disposition home or self-care (01) ==
LOC: PT 15:30
PROVIDERS: Family Provider Internal Medicine; PCP Internal Medicine; Referring Provider Internal Medicine; Visit Provider Internal Medicine
DX: M25.512 Pain in left shoulder (principal); Z47.89 Encounter for other orthopedic aftercare
CPT/HCPCS: 97110; 97161

== ENCOUNTER → 2019-05-18 17:52 | Outpatient (CLI) | payer BC, SELFPAY ==
[2018-06-04 10:14] VITALS: BMI 25.3
[2019-05-18 17:55] LABS: Mucous, Urine 0 SEEN /hpf (<or=2+); Red Blood Cells-Urine 0 SEEN /hpf (0-5); Squamous Epithelial Cells - UA 0 SEEN /hpf (0-5); White Blood Cells 0 SEEN /hpf (0-5)
[2019-05-18 18:35] LABS: Color, Urine Yellow (Yellow); Glucose, Dipstick Normal (Normal); Ketone-Dipstick Negative (Negative); Leukocyte Esterase-Dipstick 25 /ul (Negative); Nitrite-Dipstick Negative (Negative); Occult Blood-Urine 25 /ul (Negative); Protein-Dipstick 15 mg/dl (Negative); Urine Bilirubin Dipstick Negative (Negative); Urine Clarity Turbid (Clear); Urine Urobilinogen Normal (Normal)
[2019-05-18 18:43] LABS: Amorphous Sediment 3+; Bacteria 4+ /hpf (None Seen)
== END ==
PROVIDERS: Family Provider Internal Medicine; PCP Internal Medicine; Referring Provider Nurse Practitioner Adult Health
DX: R31.29 Other microscopic hematuria (principal)
CPT/HCPCS: 81001

== ENCOUNTER → 2020-05-19 13:52 | Outpatient (CLI) | payer BC, SELFPAY ==
[2018-06-04 10:14] VITALS: BMI 25.3
[2020-05-19 14:32] LABS: PSA,Total - Annual Screen 0.03 ng/mL (0.00-4.00)
== END ==
PROVIDERS: PCP Internal Medicine; Visit Provider Nurse Practitioner Adult Health
DX: Z12.5 Encounter for screening for malignant neoplasm of prostate (principal)
CPT/HCPCS: 36415; 84153; G0103

== ENCOUNTER 2021-06-21 15:06 | Outpatient (CLI) | payer BC, SELFPAY ==
[2021-06-21 18:29] LABS: PSA,Total - Annual Screen 0.04 ng/mL (0.00-4.00)
== END 2021-06-21 23:59 | disposition short-term general hospital (02) ==
LOC: MTLAB 15:08
PROVIDERS: PCP Internal Medicine; Referring Provider Urology; Visit Provider Urology
DX: R97.20 Elevated prostate specific antigen [PSA] (principal)
CPT/HCPCS: 36415; 84153; G0103

== ENCOUNTER 2023-07-22 19:37 | Emergency (ER) | payer MEDICARE, BC, SELFPAY ==
[2023-07-22 19:38] VITALS: BP 173/98; PULSE 92; RESP 18; TEMP 37.1; O2SAT 96; BMI 26.6
[2023-07-22] MEDS: Diphth,Pertuss(Acell),Tet Vac 0.5 ML Vial IM (20:08)
[2023-07-22] MEDS: Lidocaine 1% (20 ml mdv) 20 ML Vial INFILT (20:08)
--- NOTE | 2023-07-22 20:24 | EX.ED.GENINJ ---
HPI History of Present Illness Chief Complaint: Head Injury Detail of Chief Complaint: Forehead/scalp laceration Informant: patient and spouse/S.O. Onset/Context/Timing Onset: Hours Mechanism/Context: Blunt Injury Location of pain/injuries: - (Forehead above right brow) Quality of Pain: - (None) Location: Forehead Current Severity: Gone Maximum Severity: Mild Worsened by: Initial trauma Relieved by: Not applicable Associated Symptoms Associated Symptoms: Negative for Parasthesias, Weakness, Loss of function, Inability to ambulate, Loss of consciousness or Amnesia Narrative Narrative: Patient is a 68-year-old male who tripped and struck the chicken coop sustaining laceration above his right bowel up to his scalp. He denied loss conscious. Is not amnestic. He was not dazed. Is not on antithrombotic or anticoagulant other than baby aspirin. He denies decreased hearing. He has chronic ringing's ears. Denies epistaxis. Denies dental pain or trauma. He denies difficulty opening or closing his mouth completely. He denies neck pain. Denies paresthesia, anesthesia or motor weakness. He denies cardiac respiratory symptoms. Denies trouble with speech or swallowing. He denies nausea or vomiting. Tetanus Immunization: Unknown Prior similar symptoms: No Recent Illness/Hospitalization: No [facility] Medical History History of prostate cancer HTN (hypertension) Home Medications lisinopril 5 mg tablet 5 mg PO DAILY BP 01/10/18 [History Last Taken 02/11/18] multivitamin 1 tab PO QAM SUPPLEMENT 01/13/18 [History Last Taken 02/12/18] Cm Core 1 cap PO DAILY 01/21/18 [History Last Taken 02/12/18] Cm Core 2 cap PO QHS 01/21/18 [History Last Taken 02/11/18] flaxseed oil 1,000 mg capsule 1,000 mg PO BID 01/21/18 [History Last Taken 02/12/18] aspirin 81 mg tablet,delayed release 81 mg PO DAILY HEART HEALTH 02/12/18 [History Last Taken 02/12/18] hydrochlorothiazide 25 mg tablet 25 mg PO DAILY BP 02/12/18 [History Last Taken 02/12/18] omeprazole magnesium 20 mg tablet,delayed release (Prilosec OTC) 20 mg PO DAILY GERD 02/12/18 [History Last Taken 02/12/18] Allergy/AdvReac Type Severity Reaction Status Date / Time No Known Allergies Allergy Verified 07/22/23 19:38 Surgical History History of appendectomy History of hand surgery History of rotator cuff surgery Social History (Updated 07/22/23 @ 20:[address] Aman Escalante MD) household members: spouse Smoking Status: Former smoker alcohol intake: never ROS ROS ED Constitutional Constitutional ED: Denies chills, fever(s), subjective, sweats or weight loss Eyes Eyes: Denies blurry vision or change in vision ENT ENT ED: Denies ear pain, rhinorrhea or sore throat Cardiovascular Cardiovascular: Denies chest pain, palpitations or racing heartbeat Respiratory/Chest Respiratory/Chest: Denies cough, dyspnea or dyspnea on exertion Gastrointestinal Gastrointestinal: Denies nausea or vomiting Musculoskeletal Musculoskeletal: Denies back pain, myalgias or neck pain Integumentary Reports other Details: Laceration Neurologic Neurologic: Denies headache(s), paresthesias or weakness Hematologic/Lymphatic Hematologic/Lymphatic: Denies easy bleeding or easy bruising EXAM Physical Exam Const Vital Signs: 07/22/23 19:38 07/22/23 20:11 Temperature 98.8 F Temperature Source Temporal Pulse Rate 92 Respiratory Rate 18 Respiratory Effort Normal Respiratory Depth Normal Respiratory Pattern Normal Blood Pressure 173/98 H Blood Pressure Mean 123 Pulse Ox 96 Oxygen Delivery Method Room Air Positive well nourished and well developed General Appearance ED: well developed and NAD HEENT Reports TM's clear HEENT Narrative: There is no palpable depression. Is no clinical findings of basilar skull fracture. There is no septal deviation hematoma. There is no TMJ tenderness. There is no mental malocclusion. trauma and tenderness Nose: Negative for septum abnormal Tympanic Membrane ED: Yes TM's clear Eyes PERRL and EOMs intact bilaterally General Eye ED: Yes other Other Details: There is no subconjunctival hemorrhage. Neck full ROM Neck Narrative: There is no midline posterior neck pain and he has full active range of motion. General: Negative for tenderness Chest Wall inspection of chest normal and palpation of chest normal Resp normal respiratory effort Cardio regular rhythm and S1 normal heart sound Back/Spine normal to inspection Extremity normal to inspection and full ROM General Extremety ED: Negative for deformity or edema General Extremity: Negative for deformity or edema Neuro oriented x3, CN's II-XII intact bilaterally, moves all extremities, no focal motor deficits, no sensory deficits noted and gait normal Neuro Narrative: There is no dysmetria. Nancy Coma Scale: document GCS findings Spontaneous Obeys Commands Oriented 15 Plantar Reflex: Downgoing: bilateral Psych mental status grossly normal and thought process normal Skin Skin Narrative: Laceration PROC Procedures Other Procedures Procedure(s): Patient had an upside down Y-shaped laceration total length 11 cm Patient was prepped of sterile manner. The area was anesthetized by supratrochlear and supraorbital nerve block. The most proximal portion of the laceration on the lateral side required supplementation with local infiltration. There is also a small flap on the right side of the upside down why. 6-0 Ethilon was used. Numerous simple interrupted sutures was placed. Hemostasis was controlled and wound approximated well. There was no involvement of the galea. There was no palpable depression. There were 2 small arterial bleeders that resolved with pressure. MDM MDM MDM Narrative Medical decision making narrative: [place] CT head rule imaging of the head is not indicated. Patient's neck was cleared per Nexus criteria. Tetanus was updated. Super orbital and supratrochlear nerve block placed using 1% lidocaine. Total of 4 cc was injected. Discharge Plan Triage Chief Complaint: Head Injury ED Provider: Aman Escalante Dx/Rx/DC Orders Clinical Impression: Injury due to fall, Contusion of face, Contusion, periorbital, Forehead laceration Instructions: ED Laceration, All Closures, ED Laceration Minimize Scars Prescriptions: No Action multivitamin tablet 1 tab PO QAM lisinopril 5 MG tablet 5 mg PO DAILY Patient Comments: flaxseed oil 1,000 MG capsule 1,000 mg PO BID Cm Core 1 cap PO DAILY Cm Core 2 cap PO QHS aspirin 81 MG tablet 81 mg PO DAILY hydrochlorothiazide 25 MG tablet 25 mg PO DAILY Patient Comments: omeprazole magnesium [Prilosec OTC] 20 MG tablet,delayed release (DR/EC) 20 mg PO DAILY Primary Care Provider: Maren Membreno Referrals: Maren Membreno DO [Primary Care Provider] - 5 Days for suture removal Activity Restrictions/Additional Instructions: 1. Keep wound clean and dry 2. Apply bacitracin ointment 3 times a day Disposition Disposition: Home, Self Care
[2023-07-22 21:41] VITALS: BP 173/98; PULSE 92; RESP 18; TEMP 37.1; O2SAT 96
== END 2023-07-22 21:42 | disposition home or self-care (01) ==
PROVIDERS: Emergency Provider Emergency Medicine; PCP Internal Medicine; Visit Provider Emergency Medicine
DX: S01.01XA Laceration without foreign body of scalp, initial encounter (principal); S05.10XA Contusion of eyeball and orbital tissues, unspecified eye, initial encounter; Z87.891 Personal history of nicotine dependence; I10 Essential (primary) hypertension; W01.198A Fall on same level from slipping, tripping and stumbling with subsequent striking against other object, initial encounter; Z23 Encounter for immunization
CPT/HCPCS: 12054; 90715; 99283

== ENCOUNTER → 2024-07-22 | Outpatient (CLI) | payer MEDICARE, BC, SELFPAY ==
[2024-07-22 10:43] LABS: PSA,Total- Diagnostic 0.03 ng/mL (0.0-4.0)
== END | disposition home or self-care (01) ==
LOC: MTLAB 08:06
PROVIDERS: PCP Internal Medicine; Referring Provider Nurse Practitioner; Visit Provider Nurse Practitioner
DX: C61 Malignant neoplasm of prostate (principal)
CPT/HCPCS: 36415; 84153

== ENCOUNTER → 2024-07-28 | Outpatient (CLI) | payer MEDICARE, BC, SELFPAY ==
--- NOTE | 2024-07-28 11:22 | US_ITS ---
PROCEDURE: EXT NON VASC LIMITED/SOFT TISS REASON FOR EXAM: Left axillary mass. TECHNIQUE: Ultrasound imaging of the left axilla. COMPARISON: None. FINDINGS: The palpable abnormality corresponds to a 4.5 cm x 3 cm x 0.9 cm isoechoic relatively well-defined soft tissue density with mild increased vascularity. This may represent a lipoma. Biopsy recommended. US/Ext Non Vasc Limited/Soft Tiss IMPRESSION: Palpable abnormality corresponds to a 4.5 cm x 3 cm x 0.9 cm isoechoic relative ly well-defined soft tissue density with mild increased vascularity. Biopsy recommended. Reading Location: [id number]
== END | disposition home or self-care (01) ==
LOC: US 11:18
PROVIDERS: PCP Internal Medicine
DX: D03.59 Melanoma in situ of other part of trunk (principal)
CPT/HCPCS: 76882